=== PATIENT | female | born 1950 | race Caucasian/White ===

== ENCOUNTER → 2016-07-18 | Outpatient (CLI) | payer OTHER ==
[~2016-07-18] MED LIST: ASCO500T3 PO; CLTP PO; ENAL1TAB31 PO; HYDR25TA5 PO; MULTTAB58 PO; NEOM1SOL20 OT; NSNN50 NAE; POTA1CAP2 PO; TRIA0.1C20 TOP
--- NOTE | 2016-07-18 16:42 | MAMMOGRAPHY REPORT ---
BILATERAL DIGITAL SCREENING MAMMOGRAM WITH CAD: 07/18/2016 TECHNIQUE: Current study was also evaluated with a Computer Aided Detection (CAD) system. Bilatera l CC and MLO views were obtained. COMPARISON: Comparison is made to exams dated: 02/27/2015 mammogram, 11/08/2012 mammogram - [facility], and 03/07/2009. BREAST COMPOSITION: There are scattered areas of fibroglandular density in both breasts. FINDINGS: No suspicious masses, calcifications, or areas of architectural distortion are noted in e ither breast. There has been no significant interval change compared to prior exams. IMPRESSION: ACR BI-RADS CATEGORY 1: NEGATIVE There is no mammographic evidence of malignancy. A 1 year screening mammogram is recommended. The p atient will receive written notification of the results. Approximately 10% of breast cancers are not detected with mammography. A negative mammographic repor t should not delay biopsy if a clinically suggestive mass is present. Etelvina Hopper M.D. ah/:07/18/2016 13:58:27 Screw Driver Operator: Luz Marina AMAYA(Dawson)(Dyllan), [facility] letter sent: Normal 1/2 BI-RADS Code: ACR BI-RADS Category 1: Negative
== END | disposition home or self-care (01) ==
LOC: C.MAMM 13:36
PROVIDERS: ATTEND Family Medicine
DX: Z12.31 Encounter for screening mammogram for malignant neoplasm of breast (principal)

== ENCOUNTER 2017-09-04 09:27 | Inpatient (IN) | payer OTHER ==
[~2017-09-04] VITALS: Ht 177.8 cm; Wt 80.2 kg
[2017-09-04] MEDS ORDERED: SODIUM CHLORIDE 0.9% 1000ML 1,000 ML IV SCH (09:33)
--- NOTE | 2017-09-04 09:53 | DIAGNOSTIC IMAGING REPORT ---
CT OF THE HEAD WITHOUT CONTRAST CLINICAL HISTORY: Stroke COMPARISON STUDY: Head CT November 06, 2014 and MRI of the brain March 09, 2015. CT DOSE: 786.26 mGy.cm TECHNIQUE: Helical axial images of the head were obtained without IV contrast. Automated exposure control was utilized for the study. A dose lowering technique was utilized adhering to the principles of ALARA. FINDINGS: No acute intracranial hemorrhage, midline shift or mass effect is present. Ventricular system is normal. Basilar cisterns are patent. 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 There is an old infarct within the left centrum semiovale. White matter hypodensities are unchanged. There are no findings to suggest acute dural sinus thrombosis or acute territorial infarct. There are no significant calvarial abnormalities. Visualized portions of the sinuses and mastoid air cells are clear. IMPRESSION: No acute intracranial findings. Electronically signed by: Neftali Gilmore M.D. 09/04/2017 9:52 AM Dictated Date/Time: 09/04/2017 9:43 AM
[2017-09-04 09:54] LABS: ISTAT CREATININE 0.9 mg/dl (0.6-1.3); ISTAT IONIZED CALCIUM 1.2 mmol/l (1.12-1.32); ISTAT POTASSIUM 3.5 mEq/L (3.3-5.0)
[2017-09-04 09:58] LABS: BASO % 0.3 %; BASO ABS # 0.02 K/uL (0-0.2); EOS % 2.8 %; EOS ABS # 0.16 K/uL (0-0.5); HEMOGLOBIN 14.5 g/dL (12.0-16.0); IG# 0.01 K/uL (0.00-0.02); LYMPH ABS # 2.37 K/uL (1.2-3.4); MEAN CELL VOLUME 88.1 fL (80-100); MEAN CORPUSCULAR HEMOGLOBIN 30.4 pg (25-34); MEAN CORPUSCULAR HGB CONC 34.5 g/dl (32-36); MONO % 7.3 %; MONO ABS # 0.42 K/uL (0.11-0.59); NEUT % 48.4 %; PLATELET COUNT 231 K/uL (130-400); RED CELL DISTRIBUTION WIDTH CV 12.7 % (11.5-14.5); RED CELL DISTRIBUTION WIDTH SD 40.8 fL (36.4-46.3); WHITE BLOOD COUNT 5.78 K/uL (4.8-10.8)
[2017-09-04] MEDS ORDERED: OPTIRAY 300 IV PRN (10:00)
--- NOTE | 2017-09-04 10:05 | DIAGNOSTIC IMAGING REPORT ---
CTA ANGIOGRAPHY OF THE HEAD CLINICAL HISTORY: Stroke symptoms. COMPARISON STUDY: MRA of the head March 09, 2015. TECHNIQUE: Helical axial images of the head were obtained following uneventful intravenous administration of 121 cc of Optiray 320. A dose lowering technique was utilized adhering to the principles of ALARA. FINDINGS: The CTA of the neck will be reported separately. The bilateral M1, M2, A1 and A2 segments are patent. There is moderate plaque within bilateral cavernous carotids without significant stenosis. No abrupt vessel cut off is identified. Note is made of a tiny 2 mm aneurysm arising from the undersurface of the supraclinoid right ICA. No additional intracranial aneurysms are identified. The right vertebral artery is dominant. The left vertebral artery is diminutive. This is unchanged. A large left posterior communicating artery is noted. No acute intracranial hemorrhage, midline shift or mass effect is present. Ventricular system is normal. Basilar cisterns are patent. No extra-axial collections are present. IMPRESSION: 1. No abrupt vessel cut off identified. 2. 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 No additional intracranial aneurysms. 3. Moderate plaque within the bilateral cavernous carotids without hemodynamically significant stenosis. Electronically signed by: Neftali Gilmore M.D. 09/04/2017 10:04 AM Dictated Date/Time: 09/04/2017 9:55 AM
--- NOTE | 2017-09-04 10:08 | DIAGNOSTIC IMAGING REPORT ---
CT ANGIOGRAM OF THE NECK CLINICAL HISTORY: Strokelike symptoms. COMPARISON STUDY: No priors. TECHNIQUE: Following the IV administration of 121 of Optiray 320, CT angiogram of the neck was performed from the aortic arch to the skull base. Images are reviewed in the axial, sagittal, and coronal planes. 3-D MIPS images are created and assessed. IV contrast was administered without complication. All measurements were calculated based on NASCET criteria. A dose lowering technique was utilized adhering to the principles of ALARA. CT DOSE: 527.68 mGy.cm FINDINGS: Thoracic aorta: There is moderate carotid calcification of the thoracic aorta. Visualized portions of the thoracic aorta are normal in caliber. The aortic arch demonstrates standard 3-vessel anatomy. Right carotid arterial system: The right common carotid artery is widely patent, as are the right internal and external carotid arteries. Minimal ulcerated plaque is noted in the carotid bulb. Left carotid arterial system: The left common carotid artery is widely patent, as are the left internal and external carotid arteries. Vertebral arteries: The vertebral arteries are widely patent bilaterally, noting right-sided dominance. Intracranial vasculature: Intracranial vessels are patent at the skull base. The left vertebral artery is diminutive. Subclavian arteries: Widely patent bilaterally. Jugular veins: Widely patent bilaterally. Brain parenchyma: The visualized brain parenchyma the skull base is within normal limits. Lung apices: Partially visualized upper lobe lung parenchyma appears clear. Soft tissues: The visualized pharyngeal soft tissues are normal in appearance noting angiographic phase technique. The oropharyngeal airway appears widely patent. The salivary glands are normal in appearance. There is a 5 mm low-attenuation nodule in the right thyroid lobe. No cervical lymphadenopathy is seen. Skeletal structures: The visualized calvarium at the skull base appears intact. The imaged cervical spine is within normal limits. IMPRESSION: Unremarkable CT angiogram of the neck. Electronically signed by: Ben Marshall M.D. 09/04/2017 10:06 AM Dictated Date/Time: 09/04/2017 9:56 AM
--- NOTE | 2017-09-04 10:09 | DIAGNOSTIC IMAGING REPORT ---
CHEST ONE VIEW PORTABLE CLINICAL HISTORY: Stroke COMPARISON STUDY: Chest radiograph March 09, 2015. FINDINGS: Dextroscoliosis of the upper thoracic spine is incidentally noted. No pneumothorax or pleural effusion is noted. There is no evidence for pulmonary edema. Cardiomediastinal silhouette is unremarkable. Appearance of the chest is unchanged. IMPRESSION: No acute cardiopulmonary findings. Electronically signed by: Neftali Gilmore M.D. 09/04/2017 10:07 AM Dictated Date/Time: 09/04/2017 10:07 AM
[2017-09-04 10:11] LABS: PTT PATIENT 27.8 SECONDS (21.0-31.0)
[2017-09-04] MEDS ORDERED: ASPIRIN 324 MG CHEW PO STA (10:15)
[2017-09-04 10:21] LABS: BLOOD UREA NITROGEN 12 mg/dl (7-18); CALCIUM 8.9 mg/dl (8.5-10.1); CARBON DIOXIDE 30 mmol/L (21-32); GLUCOSE 95 mg/dl (70-99); POTASSIUM 4.2 mmol/L (3.5-5.1); SODIUM 135 mmol/L (136-145)
[2017-09-04 10:26] LABS: CKMB 1.8 ng/ml (0.5-3.6)
[2017-09-04 11:00] VITALS: O2SAT 96; Ht 177.8 cm; Wt 80.2 kg
[2017-09-04] MEDS ORDERED: ACETAMINOPHEN 325 MG TAB PO PRN (11:45)
[2017-09-04] MEDS ORDERED: ONDANSETRON INJ 2 MG/ML 2 ML VIAL IV PRN (11:45)
[2017-09-04] MEDS ORDERED: PLANTAB3 PO (11:53)
[2017-09-04] MEDS ORDERED: GARL1CAP6 PO (11:53)
[2017-09-04] MEDS ORDERED: OMEG1400 PO (11:53)
[2017-09-04] MEDS ORDERED: MECL1TAB42 PO (11:53)
[2017-09-04] MEDS ORDERED: MECL1TAB40 PO (11:53)
[2017-09-04 11:56] VITALS: O2SAT 94
[2017-09-04] MEDS ORDERED: PHARMACIST DISCHARGE MED REC CONSULT PRN (12:00)
[2017-09-04 12:30] VITALS: BP 168/98; PULSE 80; TEMP 36.9; O2SAT 97
[2017-09-04 12:33] LABS: HEMOGLOBIN A1C 5.8 % (4.5-5.6)
--- NOTE | 2017-09-04 14:34 | History and Physical ---
History & Physical Date & Time of Service: Sep 04, 2017 ~ 11:15 Chief Complaint: Right Sided Weakness Primary Care Physician: Faheem Nicole D.O. History of Present Illness 67-year-old female who presents to the ER with chief complaint of right-sided weakness. Patient reports she woke up feeling in her usual state of health. She was walking through a store when she reports her right leg started to not feel right. She felt as though maybe the floor was slippery. She then went home and noticed that her right arm started to become weak. She had trouble holding her coffee cup with her right hand. She also reports some difficulty walking noting that her right leg was weak and that she was falling to the right side. Patient denies slurred speech, facial droop, or dysphasia. No headache or blurred vision. She denies chest pain and shortness of breath. No lightheadedness, dizziness, diaphoresis, or syncopal events. She denies abdominal pain, nausea, vomiting, diarrhea. No other recent illnesses, fevers, or chills. She denies any urinary symptoms. In the ED symptoms have slowly started to resolve. Patient reports she has almost back to her baseline. Patient underwent head CT as well as CTA head and neck without acute findings. Alert was called however TPA was not given due to the patient's history of intracranial hemorrhage in the past. Vital signs remained stable. Patient was given full dose aspirin. Past Medical/Surgical History Medical Problems: (1) Dyslipidemia Status: Chronic (2) Hypertension Status: Chronic (3) ICH (intracerebral hemorrhage) Status: Resolved (4) Mnire's disease Status: Chronic Surgical Problems: (1) H/O dilation and curettage Status: Chronic (2) H/O tubal ligation Status: Chronic (3) Hx of appendectomy Status: Chronic (4) Hx of tonsillectomy Status: Chronic Family History CVA BROTHER FH: colon cancer FATHER FH: pancreatic cancer MOTHER Social History Smoking Status: Former Smoker Alcohol Use: occasionally Immunizations History of Influenza Vaccine: Yes Influenza Vaccine Date: Mar 08, 2017 History of Tetanus Vaccine?: Yes Tetanus Immunization Date: Jan 04, 2008 History of Pneumococcal: Yes (07/04/16) Pneumococcal Date: Jul 04, 2016 Allergies Coded Allergies: Amoxicillin (Verified Adverse Reaction, Intermediate, nausea, 03/09/15) Clavulanic Acid (Verified Adverse Reaction, Intermediate, nausea, 03/09/15 ) Prednisone (Verified Adverse Reaction, Intermediate, nausea, 03/09/15) Sulfa Antibiotics (Verified Adverse Reaction, Intermediate, nausea, ) Doxycycline (Unverified Adverse Reaction, Unknown, nausea, 03/09/15) Home Medications Scheduled Calcium/Vitamin D (Caltrate 600 Plus *), 1 TAB PO DAILY Enalapril Maleate (Vasotec), 20 MG PO BID Garlic (Garlic), 1 CAP PO BID Hydrochlorothiazide (Hydrochlorothiazide), 25 MG PO DAILY Meclizine HCl (Meclizine HCl), 1 TAB PO QAM Meclizine Hcl (Meclizine Hcl), 1 TAB PO QPM Mometasone Furoate (Nasal) (Nasonex), 2 [place] DAILY Multiple Vitamin (Multivitamin), 1 TAB PO DAILY Boulder-3 Fatty Acids (Boulder-3), 500 MG PO DAILY Plant Sterols And Stanols (Cholest Off), 2 TAB PO DAILY Potassium Chloride (Potassium Chloride Er), 10 MEQ PO BID Review of Systems ROS per HPI, all other systems reviewed and negative Physical Exam Vital Signs Date Time Temp Pulse Resp B/P (MAP) Pulse Ox O2 Delivery O2 Flow Rate FiO2 09/04/17 12:30 36.9 80 18 168/98 (121) 97 Room Air 09/04/17 11:56 76 17 141/89 94 Room Air 09/04/17 11:00 96 Room Air 09/04/17 10:56 79 20 161/92 96 Room Air 09/04/17 10:10 87 22 184/96 96 Room Air 09/04/17 10:06 93 09/04/17 09:59 88 18 177/98 95 Room Air 09/04/17 09:53 97 Room Air 09/04/17 09:29 36.6 95 20 156/93 96 Room Air General Appearance: WD/WN, no apparent distress Head: normocephalic, atraumatic Eyes: normal inspection, PERRL, EOMI, sclerae normal ENT: hearing grossly normal, + pertinent finding (Mucous membranes moist) Neck: supple, no JVD, no carotid bruits Respiratory/Chest: lungs clear, normal breath sounds, no respiratory distress Cardiovascular: regular rate, rhythm, no edema, normal peripheral pulses Abdomen/GI: normal bowel sounds, non tender, soft, no organomegaly Extremities/Musculoskelatal: normal inspection, no calf tenderness, normal capillary refill Neurologic/Psych: alert, normal mood/affect, oriented x 3, + pertinent finding (Right lower extremity strength 4/5; otherwise no focal deficits noted) Skin: normal color, warm/dry Diagnostics Laboratory Results Results Past 24 Hours Test 09/04/17 09:36 09/04/17 09:38 09/04/17 09:52 09/04/17 09:56 Range/Units Bedside Hemoglobin 15.0 12.0-16.0 g/dl Bedside Hematocrit 44 37-47 % Bedside Sodium 139 135-144 mEq/L Bedside Potassium 3.5 3.3-5.0 mEq/L Bedside Chloride 97 101-112 mEq/L Bedside Total CO2 31 24-31 mEq/l Anion Gap 15.0 4.0 3-11 mmol/L Bedside Blood Urea Nitrogen 12 7-18 mg/dl Bedside Creatinine 0.9 0.6-1.3 mg/dl Bedside Glucose (other) 111 70-99 mg/dl Bedside Ionized Calcium (Bo) 1.20 1.12-1.32 mmol/l White Blood Count 5.78 4.8-10.8 K/uL Red Blood Count 4.77 4.2-5.4 M/uL Hemoglobin 14.5 12.0-16.0 g/dL Hematocrit 42.0 37-47 % Mean Corpuscular Volume 88.1 80-100 fL Mean Corpuscular Hemoglobin 30.4 25-34 pg Mean Corpuscular Hemoglobin Concent 34.5 32-36 g/dl Platelet Count 231 130-400 K/uL Mean Platelet Volume 11.0 7.4-10.4 fL Neutrophils (%) (Auto) 48.4 % Lymphocytes (%) (Auto) 41.0 % Monocytes (%) (Auto) 7.3 % Eosinophils (%) (Auto) 2.8 % Basophils (%) (Auto) 0.3 % Neutrophils # (Auto) 2.80 1.4-6.5 K/uL Lymphocytes # (Auto) 2.37 1.2-3.4 K/uL Monocytes # (Auto) 0.42 0.11-0.59 K/uL Eosinophils # (Auto) 0.16 0-0.5 K/uL Basophils # (Auto) 0.02 0-0.2 K/uL RDW Standard Deviation 40.8 36.4-46.3 fL RDW Coefficient of Variation 12.7 11.5-14.5 % Immature Granulocyte % (Auto) 0.2 % Immature Granulocyte # (Auto) 0.01 0.00-0.02 K/uL Prothrombin Time 10.7 9.0-12.0 SECONDS Prothromb Time International Ratio 1.0 0.9-1.1 Activated Partial Thromboplast Time 27.8 21.0-31.0 SECONDS Partial Thromboplastin Ratio 1.1 Estimated Average Glucose 120 mg/dl Hemoglobin A1c 5.8 4.5-5.6 % Bedside Prothrombin Time INR 1.1 0.9-1.1 Sodium Level 135 136-145 mmol/L Potassium Level 4.2 3.5-5.1 mmol/L Chloride Level 101 98-107 mmol/L Carbon Dioxide Level 30 21-32 mmol/L Blood Urea Nitrogen 12 7-18 mg/dl Creatinine 0.80 0.60-1.20 mg/dl Est Creatinine Clear Calc Drug Dose 80.4 ml/min Estimated GFR () 88.4 Estimated GFR (Non- 76.3 BUN/Creatinine Ratio 14.5 10-20 Random Glucose 95 70-99 mg/dl Calcium Level 8.9 8.5-10.1 mg/dl Magnesium Level 2.0 1.8-2.4 mg/dl Total Creatine Kinase 104 26-192 U/L Creatine Kinase MB 1.8 0.5-3.6 ng/ml Creatine Kinase MB Ratio 1.7 0-3.0 Troponin I < 0.015 0-0.045 ng/ml Diagnostic Radiology HEAD CT IMPRESSION: No acute intracranial findings. CXR IMPRESSION: No acute cardiopulmonary findings. CTA NECK IMPRESSION: Unremarkable CT angiogram of the neck. CTA HEAD IMPRESSION: 1. No abrupt vessel cut off identified. 2. 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 No additional intracranial aneurysms. 3. Moderate plaque within the bilateral cavernous carotids without hemodynamically significant stenosis. Impression Assessment and Plan RIGHT-SIDED WEAKNESS R/O CVA -Admitted to telemetry -Patient presenting with right-sided weakness started around 8:00 this morning, symptoms have gradually resolved since arrival in the ER and patient is now near baseline -Head CT, CTA head and neck negative for acute findings in the ED -Stroke alert called however patient felt not to be a candidate for TPA secondary to her history of subarachnoid hemorrhage in 2006 (which was felt to be hypertensive in nature) -S/P full dose aspirin in the ED, will continue with aspirin 81 mg daily -Will start Lipitor 40 mg daily, patient was recently diagnosed with dyslipidemia as an outpatient however was trying diet modifications before starting prescription therapy -Neurochecks -Brain MRI, echo -Permissive hypertension -Neurology consult, case discussed with Tosha Pack PA-C HYPERTENSION -Will hold enalapril and hydrochlorothiazide for now while allowing for permissive hypertension due to possible CVA DYSLIPIDEMIA -Start on statin therapy DVT PROPHYLAXIS -SCDs due to history of intracranial hemorrhage DISPOSITION -In my clinical judgment this beneficiary meets acute admission criteria, established by [facility], that includes being hospitalized through two midnights. ADDENDUM: I have seen and examined the patient above and agree w the assessment and plan as stated. MRI reveals no acute intracranial abnormality and at this point she appears to have a total resolution of her symptoms, however, gait was not assessed. CTA revealed tiny 2mm aneurysmal focus that was unchanged from a prior study at [place]. TTE was normal without interatrial shunting. Would cont ASA/statin therapy for now as clinical picture is consistent with stroke. Appreciate Neurology recs for definitive plan. Of note, patient does have chronic Meniere's disease and symptoms are well-managed with meclizine. She denies any vertigo with symptoms today. Matias, Advanced Directives Existing Living Will: Yes Existing Power of Surface Grinder Tender: Yes Resuscitation Status VTE Prophylaxis Will order VTE Prophylaxis: Yes
--- NOTE | 2017-09-04 14:35 | ECHOCARDIOGRAM REPORT ---
*NOTICE TO RECEIVING [employer] This information is strictly Confidential and protected under [place] law. [place] law prohibits you from making any further disclosure of this information unless further disclosure is expressly permitted by the written consent of the person to whom it pertains or is authorized by law. A general authorization for the release of medical or other information is not sufficient for this purpose. Hospital accepts no responsibility if the information is made available to any other person, INCLUDING THE PATIENT. Interpretation Summary * Name: SARAH VARELA Study Date: 09/04/2017 01:11 PM BP: 168/98 mmHg * Patient Location: [facility] HR: 80 * : 1950 (M/d/yyyy) Gender: Female Height: 70 in * Age: 67 yrs Ethnicity: CA Weight: 184 lb * Ordering Physician: Isabelle Pond * Performed By: Roslyn Wyman RDCS * * Reason For Study: Cerebral Vascular Attack * BSA: 2.0 m2 * -- Conclusions -- * Injection of contrast documented no interatrial shunt. * The interatrial septum is intact with no evidence for an atrial septal defect. * The left ventricle is normal in size. * Left ventricular systolic function is normal. * Ejection Fraction = 55-60%. * The right ventricular systolic function is normal. * The left atrial size is normal. * Right atrial size is normal. * No significant valvular pathology. Procedure Details * A complete two-dimensional transthoracic echocardiogram was performed (2D, M-mode, Doppler and color flow Doppler). * A saline contrast injection was performed to assess for cardiac shunting. * The injection was performed through an intravenous line in the left arm. * The attending nurse who injected the saline contrast was Linda Callahan RN. * A total of 20 cc of agitated saline was given. Left Ventricle * The left ventricle is normal in size. * There is normal left ventricular wall thickness. * Ejection Fraction = 55-60%. * Left ventricular systolic function is normal. Right Ventricle * The right ventricle is normal size. * The right ventricular systolic function is normal. Atria * The left atrial size is normal. * Right atrial size is normal. * Injection of contrast documented no interatrial shunt. * The interatrial septum is intact with no evidence for an atrial septal defect. Mitral Valve * The mitral valve anatomy is normal. * Significant mitral regurgitation is absent. Tricuspid Valve * The tricuspid valve anatomy is normal. * Significant tricuspid regurgitation is absent. Aortic Valve * The aortic valve is tricuspid. The leaflet thickness if normal. There is no aortic stenosis, and no significant insufficiency. Pulmonic Valve * The pulmonic valve is not well visualized. Great Vessels * The aortic root and proximal ascending aorta are normal sized. Pericardium/Pleural * There is no pericardial effusion. MMode 2D Measurements and Calculations IVSd 0.85 cm IVSs 0.93 cm LVIDd 4.0 cm LVIDs 2.8 cm LVPWd 0.71 cm LVPWs 1.4 cm IVS/LVPW 1.2 FS 29.9 % EDV(Teich) 69.6 ml ESV(Teich) 29.5 ml EF(Teich) 57.6 % EDV(cubed) 63.6 ml ESV(cubed) 21.9 ml EF(cubed) 65.5 % % IVS thick 9.4 % % LVPW thick 97.4 % LV mass(C)d 90.1 grams LV mass(C)dI 44.7 grams/m\S\2 LV mass(C)s 94.9 grams LV mass(C)sI 47.1 grams/m\S\2 SV(Teich) 40.1 ml SI(Teich) 19.9 ml/m\S\2 SV(cubed) 41.6 ml SI(cubed) 20.7 ml/m\S\2 Ao root diam 2.9 cm Ao root area 6.8 cm\S\2 ACS 2.0 cm LA dimension 3.4 cm LA/Ao 1.1 LVAd ap4 25.2 cm\S\2 LVLd ap4 7.9 cm EDV(MOD-sp4) 66.5 ml EDV(sp4-el) 68.4 ml LVAs ap4 14.7 cm\S\2 LVLs ap4 6.4 cm ESV(MOD-sp4) 29.2 ml ESV(sp4-el) 28.8 ml EF(MOD-sp4) 56.1 % EF(sp4-el) 57.9 % LVAd ap2 22.2 cm\S\2 LVLd ap2 7.6 cm EDV(MOD-sp2) 57.5 ml EDV(sp2-el) 55.2 ml LVAs ap2 13.0 cm\S\2 LVLs ap2 6.5 cm ESV(MOD-sp2) 23.0 ml ESV(sp2-el) 22.1 ml EF(MOD-sp2) 60.0 % EF(sp2-el) 59.9 % LVLd %diff -3.98 % EDV(MOD-bp) 62.2 ml LVLs %diff 1.2 % ESV(MOD-bp) 26.1 ml EF(MOD-bp) 58.0 % SV(MOD-sp4) 37.3 ml SI(MOD-sp4) 18.5 ml/m\S\2 SV(MOD-sp2) 34.5 ml SI(MOD-sp2) 17.1 ml/m\S\2 SV(MOD-bp) 36.1 ml SI(MOD-bp) 17.9 ml/m\S\2 SV(sp4-el) 39.6 ml SI(sp4-el) 19.7 ml/m\S\2 SV(sp2-el) 33.1 ml SI(sp2-el) 16.4 ml/m\S\2 Doppler Measurements and Calculations MV E max brian 62.3 cm/sec MV A max brian 108.0 cm/sec MV E/A 0.58 MV dec time 0.32 sec Ao V2 max 122.8 cm/sec Ao max PG 6.0 mmHg Ao max PG (full) 3.5 mmHg LV V1 max PG 2.5 mmHg LV V1 max 79.6 cm/sec PA V2 max 64.2 cm/sec PA max PG 1.6 mmHg TR max brian 176.0 cm/sec
[2017-09-04] MEDS ORDERED: ALPRAZOLAM 0.5 MG TAB PO PRN (15:00)
--- NOTE | 2017-09-04 15:04 | Neurology Consultation ---
Neurology Consultation Date of Consultation: Sep 04, 2017. Attending Physician: Danielle Salcedo DO Primary Care Physician: Faheem Nicole D.OJenifer Reason for Consultation: right sided weakness, TIA vs CVA History of Present Illness Source: patient Zee is a 67 year old female PMH Meniere's, disease right ear with hearing loss, HTN, ICH who presents to the ER with chief complaint of right-sided weakness. She woke up feeling at her baseline. she was walking through [place] with her and her right leg started to not feel right. She felt as though maybe the floor was slippery. She went home to eat breakfast and noticed she couldn't hold her coffee cup with her right hand. When she would walk she was veering to the right. While in the ED the symptoms slowly started to resolve and she feel back to her baseline accept she feels tired. ad CT as well as CTA head and neck without acute findings. Stroke alert was called but she was given a full dose aspirin only due to a PMH of hemorrhagic bleed. denies CP, SOB, abdominal pain, weakness, numbness tingling, N, V, vision changes, slurred speech, swallowing issues, falls Social History Alcohol Use: occasionally Housing Status: lives with family Allergies Coded Allergies: Amoxicillin (Verified Adverse Reaction, Intermediate, nausea, 03/09/15) Clavulanic Acid (Verified Adverse Reaction, Intermediate, nausea, 03/09/15 ) Prednisone (Verified Adverse Reaction, Intermediate, nausea, 03/09/15) Sulfa Antibiotics (Verified Adverse Reaction, Intermediate, nausea, ) Doxycycline (Unverified Adverse Reaction, Unknown, nausea, 03/09/15) Current Inpatient Medications Current Inpatient Medications Medications (Trade) Dose Ordered Sig/Darlene Route Start Time Stop Time Status Last Admin Dose Admin Ioversol (Optiray 300) 121 ml UD PRN IV 09/04/17 10:00 09/08/17 09:59 Acetaminophen (Tylenol Tab) 650 mg Q4H PRN PO 09/04/17 11:45 10/04/17 11:44 Ondansetron HCl (Zofran Inj) 4 mg Q6H PRN IV 09/04/17 11:45 10/04/17 11:44 Aspirin (Ecotrin Tab) 81 mg QAM PO 09/05/17 09:00 5/14/18 08:59 Atorvastatin Calcium (Lipitor Tab) 40 mg QAM PO 09/04/17 12:00 10/04/17 11:59 Miscellaneous Information (Pharmacist Discharge Med Rec Consult) 1 ea UD PRN N/A 09/04/17 12:00 10/04/17 11:59 Calcium/Vitamin D (Caltrate Plus Tab) 1 tab DAILY PO 09/05/17 09:00 10/05/17 08:59 Meclizine HCl (Antivert Tab) 25 mg DAILYBD PO 09/04/17 16:15 10/04/17 16:14 Multivitamins (Multivitamin Tab) 1 tab DAILY PO 09/05/17 09:00 10/05/17 08:59 Meclizine HCl (Antivert Tab) 12.5 mg DAILY PO 09/05/17 09:00 10/05/17 08:59 Fish Oil ([place]-3 (Purified Fish Oil) Cap) 1 gm DAILY PO 09/05/17 09:00 10/05/17 08:59 Potassium Chloride (Klor-Con M10) 10 meq BID PO 09/04/17 21:00 10/04/17 20:59 Physical Exam Vital Signs (Past 24 Hrs): Date Time Temp Pulse Resp B/P (MAP) Pulse Ox O2 Delivery O2 Flow Rate FiO2 09/04/17 12:30 36.9 80 18 168/98 (121) 97 Room Air 09/04/17 11:56 76 17 141/89 94 Room Air 09/04/17 11:00 96 Room Air 09/04/17 10:56 79 20 161/92 96 Room Air 09/04/17 10:10 87 22 184/96 96 Room Air 09/04/17 10:06 93 09/04/17 09:59 88 18 177/98 95 Room Air 09/04/17 09:53 97 Room Air 09/04/17 09:29 36.6 95 20 156/93 96 Room Air Physical Exam: Constitutional: appearance nourished, healthy and normal Ears, Nose, Mouth and Throat: mucous membranes moist, no injection and skin normal, eyes normal Cardiovascular: normal S-1 and S-2 and regular rate and rhythm Respiratory: clear to auscultation (CTA) and no rales, rhonchi or wheeze Musculoskeletal: no peripheral edema and good distal pulses Skin: no stigmata of neurocutaneous disease noted and normal and intact Eyes: extraocular muscles intact (EOMI) and pupils equal, round and reactive to light (PERRL) NEUROLOGIC EXAMINATION: Mental status: Alert and interactive Oriented to full date and location Oriented to person Speech fluent with no evidence of aphasia Cranial Nerves smile eye brow raise symmetric Reflexes: Deep tendon reflexes were symmetrical and graded 2/5. Plantar responses were flexor. Sensory: cool touch, vibration Coordination: Romberg absent, finger to nose with no bi pass Gait/Stance: Posture normal. Gait normal: with steady with steps, base, turning, heel and toe walking (mild difficulty) and tandem gait. Motor: Negative for pronator drift of out stretched arms with eyes closed. Strength: biceps, triceps, hand delivery lead intrinsics, bilaterally 5/5, hip flex plantar flex ext 5/5 bilaterally Laboratory Results Past 24 Hours: 09/04/17 09:38 Red Blood Count 4.77, Mean Corpuscular Volume 88.1, Mean Corpuscular Hemoglobin 30.4, Mean Corpuscular Hemoglobin Concent 34.5, Mean Platelet Volume 11.0, Neutrophils (%) (Auto) 48.4, Lymphocytes (%) (Auto) 41.0, Monocytes (%) (Auto) 7.3, Eosinophils (%) (Auto) 2.8, Basophils (%) (Auto) 0.3, Neutrophils # (Auto) 2.80, Lymphocytes # (Auto) 2.37, Monocytes # (Auto) 0.42, Eosinophils # (Auto) 0.16, Basophils # (Auto) 0.02 09/04/17 09:56 Test 09/04/17 09:36 09/04/17 09:38 09/04/17 09:52 09/04/17 09:56 Bedside Hemoglobin 15.0 g/dl (12.0-16.0) Bedside Hematocrit 44 % (37-47) Bedside Sodium 139 mEq/L (135-144) Bedside Potassium 3.5 mEq/L (3.3-5.0) Bedside Chloride 97 mEq/L (101-112) Bedside Total CO2 31 mEq/l (24-31) Bedside Blood Urea Nitrogen 12 mg/dl (7-18) Bedside Creatinine 0.9 mg/dl (0.6-1.3) Bedside Glucose (other) 111 mg/dl (70-99) Bedside Ionized Calcium (Bo) 1.20 mmol/l (1.12-1.32) White Blood Count 5.78 K/uL (4.8-10.8) Red Blood Count 4.77 M/uL (4.2-5.4) Hemoglobin 14.5 g/dL (12.0-16.0) Hematocrit 42.0 % (37-47) Mean Corpuscular Volume 88.1 fL (80-100) Mean Corpuscular Hemoglobin 30.4 pg (25-34) Mean Corpuscular Hemoglobin Concent 34.5 g/dl (32-36) Platelet Count 231 K/uL (130-400) Mean Platelet Volume 11.0 fL (7.4-10.4) Neutrophils (%) (Auto) 48.4 % Lymphocytes (%) (Auto) 41.0 % Monocytes (%) (Auto) 7.3 % Eosinophils (%) (Auto) 2.8 % Basophils (%) (Auto) 0.3 % Neutrophils # (Auto) 2.80 K/uL (1.4-6.5) Lymphocytes # (Auto) 2.37 K/uL (1.2-3.4) Monocytes # (Auto) 0.42 K/uL (0.11-0.59) Eosinophils # (Auto) 0.16 K/uL (0-0.5) Basophils # (Auto) 0.02 K/uL (0-0.2) RDW Standard Deviation 40.8 fL (36.4-46.3) RDW Coefficient of Variation 12.7 % (11.5-14.5) Immature Granulocyte % (Auto) 0.2 % Immature Granulocyte # (Auto) 0.01 K/uL (0.00-0.02) Prothrombin Time 10.7 SECONDS (9.0-12.0) Prothromb Time International Ratio 1.0 (0.9-1.1) Activated Partial Thromboplast Time 27.8 SECONDS (21.0-31.0) Partial Thromboplastin Ratio 1.1 Estimated Average Glucose 120 mg/dl Hemoglobin A1c 5.8 % (4.5-5.6) Bedside Prothrombin Time INR 1.1 (0.9-1.1) Anion Gap 4.0 mmol/L (3-11) Est Creatinine Clear Calc Drug Dose 80.4 ml/min Estimated GFR () 88.4 Estimated GFR (Non- 76.3 BUN/Creatinine Ratio 14.5 (10-20) Calcium Level 8.9 mg/dl (8.5-10.1) Magnesium Level 2.0 mg/dl (1.8-2.4) Total Creatine Kinase 104 U/L (26-192) Creatine Kinase MB 1.8 ng/ml (0.5-3.6) Creatine Kinase MB Ratio 1.7 (0-3.0) Troponin I < 0.015 ng/ml (0-0.045) Imaging TTE- * Injection of contrast documented no interatrial shunt. * The interatrial septum is intact with no evidence for an atrial septal defect. * The left ventricle is normal in size. * Left ventricular systolic function is normal. * Ejection Fraction = 55-60%. * The right ventricular systolic function is normal. * The left atrial size is normal. * Right atrial size is normal. * No significant valvular pathology. CTA head-. No abrupt vessel cut off identified. 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 No additional intracranial aneurysms. Moderate plaque within the bilateral cavernous carotids without hemodynamically significant stenosis. CTA neck- Unremarkable CT angiogram of the neck. CT head- No acute intracranial findings Impression 67 year old female with right sided weakness- resolved Plan 1. PMH ICH- not on aspirin at home -plavix not started 2. MRI brain pending 3. CTA head and neck- no acute findings 4. TTE - no ASD 5. optimize HTN, DL LDL<70 6. PT/OT appears to be no ongoing need 7. further recommendations to follow I have seen and discussed above patient with Dr Tosha Dalal, neurology Pt seen and examined, Hx of what I presume to be a htn L thal hem. Pt denies residua. Had transient sx rue and rle.Suspect TIA, REc MRI, cardiovasc chu. morales/ MD Larisa
[2017-09-04 15:41] VITALS: BP 129/80; PULSE 89; TEMP 37.1; O2SAT 96
--- NOTE | 2017-09-04 16:12 | EMERGENCY ROOM VISIT NOTE ---
History Report prepared by Charles: Regina Gallegos Under the Supervision of: Dr. Augustine Farias D.O. First contact with patient: 09:30 Chief Complaint: STROKE SYMPTOMS Stated Complaint: POSSIBLE STROKE SYMPTOMS History of Present Illness The patient is a 67 year old female who presents to the Emergency Room with complaints of sudden weakness in her right leg and right arm beginning at 8 am this morning, an hour and a half ago. The patient states "I believe I might be having a stroke". She notes that at 8 AM she has weakness in her right upper and right lower extremity. Nothing makes this better or worse. She has trouble with fine motor. She is able to ambulate but notes that she falls to the side. She has never had this before. This did come on suddenly and has been persistent since 8am. per , the patient's speech sounds normal. The patient states she was walking through [employer] when she started to feel "off balance". Pt denies headache, change in vision, fevers, chest pain, shortness of breath, nausea, vomiting, diarrhea, pain with urination, and melena. The patient denies any history of A-fib. The patient notes a history of a brain bleed which she was life flighted to [facility] in 2005. She states she is unsure of what the cause of her brain bleed was. The patient had an MRI yesterday because of her history of Meniere's disease. Source of History: patient Onset: 8 am Position: other (right sided) Quality: other (weakness) Timing: other (sudden) Associated Symptoms: + weakness, No fevers, No headache, No chest pain, No SOB, No nausea, No vomiting, No diarrhea Review of Systems See HPI for pertinent positives & negatives. A total of 10 systems reviewed and were otherwise negative. Past Medical & Surgical Medical Problems: (1) Dyslipidemia (2) Hypertension (3) ICH (intracerebral hemorrhage) (4) Mnire's disease Surgical Problems: (1) H/O dilation and curettage (2) H/O tubal ligation (3) Hx of appendectomy (4) Hx of tonsillectomy Family History Cancer Gallbladder disease Hypertension Social History Smoking Status: Former Smoker Alcohol Use: none Marital Status: Housing Status: lives with family Occupation Status: employed Current/Historical Medications Scheduled Calcium/Vitamin D (Caltrate 600 Plus *), 1 TAB PO DAILY Enalapril Maleate (Vasotec), 20 MG PO BID Garlic (Garlic), 1 CAP PO BID Hydrochlorothiazide (Hydrochlorothiazide), 25 MG PO DAILY Meclizine HCl (Meclizine HCl), 1 TAB PO DAILY Meclizine Hcl (Meclizine Hcl), 1 TAB PO DAILYBD Mometasone Furoate (Nasal) (Nasonex), 2 [place] DAILY Multiple Vitamin (Multivitamin), 1 TAB PO DAILY Sunflower-3 Fatty Acids (Sunflower-3), 500 MG PO DAILY Plant Sterols And Stanols (Cholest Off), 2 TAB PO DAILY Potassium Chloride (Potassium Chloride Er), 10 MEQ PO BID Allergies Coded Allergies: Amoxicillin (Verified Adverse Reaction, Intermediate, nausea, 03/09/15) Clavulanic Acid (Verified Adverse Reaction, Intermediate, nausea, 03/09/15 ) Prednisone (Verified Adverse Reaction, Intermediate, nausea, 03/09/15) Sulfa Antibiotics (Verified Adverse Reaction, Intermediate, nausea, ) Doxycycline (Unverified Adverse Reaction, Unknown, nausea, 03/09/15) Physical Exam Vital Signs Date Time Temp Pulse Resp B/P (MAP) Pulse Ox O2 Delivery O2 Flow Rate FiO2 09/04/17 11:00 96 Room Air 09/04/17 10:56 79 20 161/92 96 Room Air 09/04/17 10:10 87 22 184/96 96 Room Air 09/04/17 10:06 93 09/04/17 09:59 88 18 177/98 95 Room Air 09/04/17 09:53 97 Room Air 09/04/17 09:29 36.6 95 20 156/93 96 Room Air Physical Exam GENERAL: Sitting up in bed, alert, anxious appearing, well nourished, no distress, non-toxic EYE EXAM: normal conjunctiva. PERRL and EOM's intact. OROPHARYNX: no exudate, no erythema, lips, buccal mucosa, and tongue normal and mucous membranes are moist NECK: supple, no nuchal rigidity, no adenopathy, non-tender LUNGS: Clear to auscultation. Normal chest wall mechanics HEART: no murmurs, S1 normal and S2 normal ABDOMEN: abdomen soft, non-tender, normo-active bowel sounds, no masses, no rebound or guarding. BACK: Back is symmetrical on inspection and there is no deformity, no midline tenderness, no CVA tenderness. SKIN: no rashes and no bruising UPPER EXTREMITIES: upper extremities are grossly normal. LOWER EXTREMITIES: No pitting edema. NEURO EXAM:Awake, alert, following commands, slight weakness with flexion and extension and grasp of right upper extremity, positive drift on right. Slight weakness with flexion in right hip and with plantar and dorsal flexion. No weakness noted on left side. Cranial nerves II through XII are intact. Medical Decision & Procedures ER Provider Diagnostic Interpretation: MRI IAC WITHOUT AND WITH CONTRAST from 09/03/17 Impression: 1. No evidence for abnormality in each temporal bone region. 2. Chronic microvascular changes 3. Sequela of remote hemorrhage in the left basal ganglia and posterior limb on prior MRI 2005 study. Adjacent unchanged gliosis in the the left ramirez radiata. Radiology results as stated below per my review and the radiologist's interpretation: CTA ANGIOGRAPHY OF THE HEAD CLINICAL HISTORY: Stroke symptoms. COMPARISON STUDY: MRA of the head March 09, 2015. TECHNIQUE: Helical axial images of the head were obtained following uneventful intravenous administration of 121 cc of Optiray 320. A dose lowering technique was utilized adhering to the principles of ALARA. FINDINGS: The CTA of the neck will be reported separately. The bilateral M1, M2, A1 and A2 segments are patent. There is moderate plaque within bilateral cavernous carotids without significant stenosis. No abrupt vessel cut off is identified. Note is made of a tiny 2 mm aneurysm arising from the undersurface of the supraclinoid right ICA. No additional intracranial aneurysms are identified. The right vertebral artery is dominant. The left vertebral artery is diminutive. This is unchanged. A large left posterior communicating artery is noted. No acute intracranial hemorrhage, midline shift or mass effect is present. Ventricular system is normal. Basilar cisterns are patent. No extra-axial collections are present. IMPRESSION: 1. No abrupt vessel cut off identified. 2. 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 No additional intracranial aneurysms. 3. Moderate plaque within the bilateral cavernous carotids without hemodynamically significant stenosis. Electronically signed by: Neftali Gilmore M.D. CT ANGIOGRAM OF THE NECK CLINICAL HISTORY: Strokelike symptoms. COMPARISON STUDY: No priors. TECHNIQUE: Following the IV administration of 121 of Optiray 320, CT angiogram of the neck was performed from the aortic arch to the skull base. Images are reviewed in the axial, sagittal, and coronal planes. 3-D MIPS images are created and assessed. IV contrast was administered without complication. All measurements were calculated based on NASCET criteria. A dose lowering technique was utilized adhering to the principles of ALARA. CT DOSE: 527.68 mGy.cm FINDINGS: Thoracic aorta: There is moderate carotid calcification of the thoracic aorta. Visualized portions of the thoracic aorta are normal in caliber. The aortic arch demonstrates standard 3-vessel anatomy. Right carotid arterial system: The right common carotid artery is widely patent, as are the right internal and external carotid arteries. Minimal ulcerated plaque is noted in the carotid bulb. Left carotid arterial system: The left common carotid artery is widely patent, as are the left internal and external carotid arteries. Vertebral arteries: The vertebral arteries are widely patent bilaterally, noting right-sided dominance. Intracranial vasculature: Intracranial vessels are patent at the skull base. The left vertebral artery is diminutive. Subclavian arteries: Widely patent bilaterally. Jugular veins: Widely patent bilaterally. Brain parenchyma: The visualized brain parenchyma the skull base is within normal limits. Lung apices: Partially visualized upper lobe lung parenchyma appears clear. Soft tissues: The visualized pharyngeal soft tissues are normal in appearance noting angiographic phase technique. The oropharyngeal airway appears widely patent. The salivary glands are normal in appearance. There is a 5 mm low-attenuation nodule in the right thyroid lobe. No cervical lymphadenopathy is seen. Skeletal structures: The visualized calvarium at the skull base appears intact. The imaged cervical spine is within normal limits. IMPRESSION: Unremarkable CT angiogram of the neck. Electronically signed by: Ben Marshall M.D. CHEST ONE VIEW PORTABLE CLINICAL HISTORY: Stroke COMPARISON STUDY: Chest radiograph March 09, 2015. FINDINGS: Dextroscoliosis of the upper thoracic spine is incidentally noted. No pneumothorax or pleural effusion is noted. There is no evidence for pulmonary edema. Cardiomediastinal silhouette is unremarkable. Appearance of the chest is unchanged. IMPRESSION: No acute cardiopulmonary findings. Electronically signed by: Neftali Gilmore M.D. CT OF THE HEAD WITHOUT CONTRAST CLINICAL HISTORY: Stroke COMPARISON STUDY: Head CT November 06, 2014 and MRI of the brain March 09, 2015. CT DOSE: 786.26 mGy.cm TECHNIQUE: Helical axial images of the head were obtained without IV contrast. Automated exposure control was utilized for the study. A dose lowering technique was utilized adhering to the principles of ALARA. FINDINGS: No acute intracranial hemorrhage, midline shift or mass effect is present. Ventricular system is normal. Basilar cisterns are patent. 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 There is an old infarct within the left centrum semiovale. White matter hypodensities are unchanged. There are no findings to suggest acute dural sinus thrombosis or acute territorial infarct. There are no significant calvarial abnormalities. Visualized portions of the sinuses and mastoid air cells are clear. IMPRESSION: No acute intracranial findings. Electronically signed by: Neftali Gilmore M.D. Laboratory Results 09/04/17 09:38 Red Blood Count 4.77, Mean Corpuscular Volume 88.1, Mean Corpuscular Hemoglobin 30.4, Mean Corpuscular Hemoglobin Concent 34.5, Mean Platelet Volume 11.0, Neutrophils (%) (Auto) 48.4, Lymphocytes (%) (Auto) 41.0, Monocytes (%) (Auto) 7.3, Eosinophils (%) (Auto) 2.8, Basophils (%) (Auto) 0.3, Neutrophils # (Auto) 2.80, Lymphocytes # (Auto) 2.37, Monocytes # (Auto) 0.42, Eosinophils # (Auto) 0.16, Basophils # (Auto) 0.02 09/04/17 09:56 Test 09/04/17 09:36 09/04/17 09:38 09/04/17 09:52 09/04/17 09:56 Bedside Hemoglobin 15.0 g/dl (12.0-16.0) Bedside Hematocrit 44 % (37-47) Bedside Sodium 139 mEq/L (135-144) Bedside Potassium 3.5 mEq/L (3.3-5.0) Bedside Chloride 97 mEq/L (101-112) Bedside Total CO2 31 mEq/l (24-31) Bedside Blood Urea Nitrogen 12 mg/dl (7-18) Bedside Creatinine 0.9 mg/dl (0.6-1.3) Bedside Glucose (other) 111 mg/dl (70-99) Bedside Ionized Calcium (Bo) 1.20 mmol/l (1.12-1.32) White Blood Count 5.78 K/uL (4.8-10.8) Red Blood Count 4.77 M/uL (4.2-5.4) Hemoglobin 14.5 g/dL (12.0-16.0) Hematocrit 42.0 % (37-47) Mean Corpuscular Volume 88.1 fL (80-100) Mean Corpuscular Hemoglobin 30.4 pg (25-34) Mean Corpuscular Hemoglobin Concent 34.5 g/dl (32-36) Platelet Count 231 K/uL (130-400) Mean Platelet Volume 11.0 fL (7.4-10.4) Neutrophils (%) (Auto) 48.4 % Lymphocytes (%) (Auto) 41.0 % Monocytes (%) (Auto) 7.3 % Eosinophils (%) (Auto) 2.8 % Basophils (%) (Auto) 0.3 % Neutrophils # (Auto) 2.80 K/uL (1.4-6.5) Lymphocytes # (Auto) 2.37 K/uL (1.2-3.4) Monocytes # (Auto) 0.42 K/uL (0.11-0.59) Eosinophils # (Auto) 0.16 K/uL (0-0.5) Basophils # (Auto) 0.02 K/uL (0-0.2) RDW Standard Deviation 40.8 fL (36.4-46.3) RDW Coefficient of Variation 12.7 % (11.5-14.5) Immature Granulocyte % (Auto) 0.2 % Immature Granulocyte # (Auto) 0.01 K/uL (0.00-0.02) Prothrombin Time 10.7 SECONDS (9.0-12.0) Prothromb Time International Ratio 1.0 (0.9-1.1) Activated Partial Thromboplast Time 27.8 SECONDS (21.0-31.0) Partial Thromboplastin Ratio 1.1 Estimated Average Glucose 120 mg/dl Hemoglobin A1c 5.8 % (4.5-5.6) Bedside Prothrombin Time INR 1.1 (0.9-1.1) Anion Gap 4.0 mmol/L (3-11) Est Creatinine Clear Calc Drug Dose 80.4 ml/min Estimated GFR () 88.4 Estimated GFR (Non- 76.3 BUN/Creatinine Ratio 14.5 (10-20) Calcium Level 8.9 mg/dl (8.5-10.1) Magnesium Level 2.0 mg/dl (1.8-2.4) Total Creatine Kinase 104 U/L (26-192) Creatine Kinase MB 1.8 ng/ml (0.5-3.6) Creatine Kinase MB Ratio 1.7 (0-3.0) Troponin I < 0.015 ng/ml (0-0.045) Medications Administered Medications (Trade) Dose Ordered Sig/Darlene Route Start Time Stop Time Status Last Admin Dose Admin Sodium Chloride 1,000 ml @ 50 mls/hr Q20H IV 09/04/17 09:33 09/04/17 13:00 DC 09/04/17 10:02 50 MLS/HR Aspirin (Aspirin Chew) 324 mg NOW STAT PO 09/04/17 10:15 09/04/17 10:16 DC 09/04/17 10:22 324 MG ECG Per My Interpretation Indication: weakness Rate (beats per minute): 85 Rhythm: normal sinus Findings: other (normal axis, poor baseline in inferior and lateal, questionable st depression in lateral ) ED Course ED COURSE: Vital signs were reviewed and showed hypertensive The patients medical record was reviewed The above diagnostic studies were performed and reviewed. ED treatments and interventions as stated above. 0931: The patient was evaluated in room A12B. A complete history and physical examination was performed. Review of EMR shows the patient had a left thalamic bleed in 2005. 0933: Ordered Sodium Chloride 1000 ml @ 50 mls/hr IV. 0947: I reviewed the patient's case with Dr. Joan Evangelista. 1013: I reviewed the patient's case with Dr. Joan Evangelista. She said not to give the patient tPA due to her previous brain bleed. 1015: Ordered Aspirin 324 mg PO. 1024: I updated the patient on her test results. 1038: I reviewed the patient's case with Dr. Castro Singletary. He will evaluate the patient for further management. 1045: Upon reevaluation, the patient is resting.I discussed my findings with the patient and she understands and agrees with the treatment plan. Based on the patients age, coexisting illnesses, exam and lab findings the decision to treat as an inpatient was made. The patient remained stable while under my care. The patient will be evaluated for further management. Medical Decision Differential Diagnosis includes but is not limited to ischemic Stroke, hemorrhagic stroke, bells palsy, mass, neoplasm, migraine headache, seizure, subarachnoid hemorrhage, TIA, and transient global amnesia. Patient is a 67-year-old female who presents the ER for sudden onset of right- sided weakness at 8 AM. Upon arrival stroke alert was called. Patient was taken to the CAT scan where CT head was performed. Her history with a previous hemorrhagic CVA in 2005 was reviewed. I do not believe that this was a hypertensive bleed as her blood pressures at that time were 150s. Because of this I did perform a CTA is a favored she would likely not be a thrombolytic candidate. Did discuss with [facility] neurology. Patient was evaluated at bedside by them. Decision was made in combination with the patient myself and [facility]a neurology not to give TPA with the previous brain bleed. CBC along with BMP, LFTs, bilirubin and troponin was negative. EKG had a poor baseline but nonischemic. INR was normal. Patient was given fluids and aspirin following passing the swallowing screen. Patient was admitted to internal medicine with a CVA. Medication Reconcilliation Current Medication List: was personally reviewed by me Blood Pressure Screening Patient's blood pressure: Elevated blood pressure Blood pressure disposition: Elevated BP felt to be situational Consults Time Called: 09 Consulting Physician: Dr. Franco Telestroke Returned Call: 0947 I reviewed the patient's case with Dr. Franco Telestroke. Additional Consults: Time Called: 1030 Consulted Physician: Dr. Castro Singletary Returned Call: [phone] Additional Comments: I reviewed the patient's case with Dr. Castro Singletary. He will evaluate the patient for further management. Impression Primary Impression: CVA (cerebral vascular accident) Scribe Attestation The scribe's documentation has been prepared under my direction and personally reviewed by me in its entirety. I confirm that the note above accurately reflects all work, treatment, procedures, and medical decision making performed by me. Departure Information Dispostion Being Evaluated By Hospitalist Referrals Faheem Nicole D.O. (PCP) Patient Instructions My [facility] Stroke History Time Last Known Well 8 am Stroke t-PA Criteria Reviewed Does NOT meet criteria for t-PA Reason t-PA Not Given Contraindicated Problem Qualifiers Primary Impression: CVA (cerebral vascular accident) CVA mechanism: unspecified Qualified Codes: I63.9 - Cerebral infarction, unspecified
[2017-09-04] MEDS ORDERED: MECLIZINE HCL 12.5 MG TAB PO SCH (16:15)
[2017-09-04] MEDS: ATORVASTATIN 40 MG TAB PO SCH (17:10)
--- NOTE | 2017-09-04 18:50 | DIAGNOSTIC IMAGING REPORT ---
BRAIN COMBO CLINICAL HISTORY: 67 years-old Female presenting with Stroke, off balance, right arm and leg weakness, history of stroke and intracranial hemorrhage at 12 years of age. TECHNIQUE: Multisequence, multiplanar MR imaging of the brain was performed before and after the administration of intravenous contrast. IV contrast: 8.3 mL of Gadavist. COMPARISON: 03/09/[address] from earlier the same day. FINDINGS: Ventricles and sulci normal in size. Periventricular and subcortical white matter T2/FLAIR hyperintensity, nonspecific but likely indicative of chronic small vessel ischemic change. No mass effect or midline shift. No restricted diffusion to suggest acute ischemia. No hemorrhage. No extra-axial fluid collection. T2 skull base flow voids preserved. No abnormal parenchymal enhancement. Bone marrow signal intensity within the calvarium within normal limits. IMPRESSION: 1. Chronic small vessel ischemic change. No acute intracranial abnormality. No abnormal enhancement. Electronically signed by: Thaddeus Ivan M.D. 09/04/2017 6:49 PM Dictated Date/Time: 09/04/2017 6:44 PM
[2017-09-04 19:45] VITALS: BP 134/87; PULSE 94; TEMP 36.8; O2SAT 95
[2017-09-04] MEDS: POTASSIUM CHLORIDE 10 MEQ TABCR PO SCH (20:26)
[2017-09-04] MEDS ORDERED: MECLIZINE HCL 25 MG TAB PO SCH (21:00)
[2017-09-04 23:00] VITALS: BP 112/75; PULSE 86; TEMP 37; O2SAT 96
[2017-09-05 03:00] VITALS: BP 110/65; PULSE 81; TEMP 36.7; O2SAT 95
[2017-09-05 06:30] LABS: HEMATOCRIT 44.1 % (37-47); HEMOGLOBIN 15.1 g/dL (12.0-16.0); MEAN CELL VOLUME 87.7 fL (80-100); MEAN CORPUSCULAR HGB CONC 34.2 g/dl (32-36); MEAN PLATELET VOLUME 11.1 fL (7.4-10.4); PLATELET COUNT 255 K/uL (130-400); RED CELL DISTRIBUTION WIDTH CV 12.8 % (11.5-14.5); RED CELL DISTRIBUTION WIDTH SD 41.1 fL (36.4-46.3); WHITE BLOOD COUNT 5.86 K/uL (4.8-10.8)
[2017-09-05 07:04] LABS: CALCIUM 9.4 mg/dl (8.5-10.1); CREATININE 0.75 mg/dl (0.60-1.20); POTASSIUM 3.6 mmol/L (3.5-5.1)
[2017-09-05 07:10] VITALS: BP 126/78; PULSE 75; TEMP 36.5; O2SAT 94
[2017-09-05] MEDS: POTASSIUM CHLORIDE 10 MEQ TABCR PO SCH (08:01)
[2017-09-05] MEDS: ATORVASTATIN 40 MG TAB PO SCH (08:01)
[2017-09-05 08:50] LABS: BASO % 0.3 %; BASO ABS # 0.02 K/uL (0-0.2); EOS % 4.3 %; EOS ABS # 0.25 K/uL (0-0.5); IG# 0.01 K/uL (0.00-0.02); LYMPH % 51.4 %; LYMPH ABS # 3.01 K/uL (1.2-3.4); MONO % 8.4 %; MONO ABS # 0.49 K/uL (0.11-0.59); NEUT % 35.4 %; NEUT ABS # 2.08 K/uL (1.4-6.5)
[2017-09-05] MEDS ORDERED: MECLIZINE HCL 12.5 MG TAB PO SCH (09:00)
[2017-09-05] MEDS ORDERED: OMEGA-3 (PURIFIED FISH OIL) 1 GM CAP PO SCH (09:00)
[2017-09-05] MEDS ORDERED: ASPIRIN 81 MG ECTAB PO SCH (09:00)
[2017-09-05] MEDS ORDERED: MULTIVITAMIN TAB PO SCH (09:00)
[2017-09-05] MEDS ORDERED: CALCIUM 600MG + VIT D 400 IU TAB PO SCH (09:00)
--- NOTE | 2017-09-05 10:11 | Progress Note ---
Medicine Progress Note Date & Time of Visit: Sep 05, 2017 at 09:51. Subjective Pt was seen and examined Sitting at the edge of the bed with no distress Pt walked to the bathroom this morning with assistance She said that she still have weakness in the right side Pt said that she does not have any weakness and slurred speech Denies any chest pain, palpitation, dizziness and SOB Objective Last 8 Hrs Date Time Temp Pulse Resp B/P (MAP) Pulse Ox O2 Delivery O2 Flow Rate FiO2 09/05/17 08:00 Room Air 09/05/17 07:10 36.5 75 20 126/78 (94) 94 Room Air 09/05/17 04:00 Room Air 09/05/17 03:00 36.7 81 17 110/65 (80) 95 Room Air Physical Exam: General- No acute distress Head- atraumatic Eyes- PERRL, EOMI ENT- oropharynx clear Neck- supple, no JVD Lungs- clear to auscultation Heart- regular rhythm Abdomen- normal bowel sounds, soft Extremities- no calf tenderness Neuro- alert, oriented x 3; PERRL, EOMI; no facial palsy, strength 4/5 RUE, decrease hand solution sales senior executive Skin- warm & dry Laboratory Results: Last 24 Hours Test 09/04/17 09:52 09/04/17 09:56 09/05/17 06:06 Bedside Prothrombin Time INR 1.1 Sodium Level 135 mmol/L 138 mmol/L Potassium Level 4.2 mmol/L 3.6 mmol/L Chloride Level 101 mmol/L 103 mmol/L Carbon Dioxide Level 30 mmol/L 29 mmol/L Anion Gap 4.0 mmol/L 6.0 mmol/L Blood Urea Nitrogen 12 mg/dl 12 mg/dl Creatinine 0.80 mg/dl 0.75 mg/dl Est Creatinine Clear Calc Drug Dose 80.4 ml/min 78.7 ml/min Estimated GFR () 88.4 95.6 Estimated GFR (Non- 76.3 82.5 BUN/Creatinine Ratio 14.5 16.1 Random Glucose 95 mg/dl 103 mg/dl Calcium Level 8.9 mg/dl 9.4 mg/dl Magnesium Level 2.0 mg/dl Total Creatine Kinase 104 U/L Creatine Kinase MB 1.8 ng/ml Creatine Kinase MB Ratio 1.7 Troponin I < 0.015 ng/ml White Blood Count 5.86 K/uL Red Blood Count 5.03 M/uL Hemoglobin 15.1 g/dL Hematocrit 44.1 % Mean Corpuscular Volume 87.7 fL Mean Corpuscular Hemoglobin 30.0 pg Mean Corpuscular Hemoglobin Concent 34.2 g/dl Platelet Count 255 K/uL Mean Platelet Volume 11.1 fL Neutrophils (%) (Auto) 35.4 % Lymphocytes (%) (Auto) 51.4 % Monocytes (%) (Auto) 8.4 % Eosinophils (%) (Auto) 4.3 % Basophils (%) (Auto) 0.3 % Neutrophils # (Auto) 2.08 K/uL Lymphocytes # (Auto) 3.01 K/uL Monocytes # (Auto) 0.49 K/uL Eosinophils # (Auto) 0.25 K/uL Basophils # (Auto) 0.02 K/uL RDW Standard Deviation 41.1 fL RDW Coefficient of Variation 12.8 % Immature Granulocyte % (Auto) 0.2 % Immature Granulocyte # (Auto) 0.01 K/uL Triglycerides Level 118 mg/dl Cholesterol Level 228 mg/dl HDL Cholesterol 60 mg/dl LDL Cholesterol, Calculated 144 mg/dl VLDL Cholesterol, Calculated 24 mg/dl Cholesterol/HDL Ratio 3.8 Assessment & Plan RIGHT-SIDED WEAKNESS R/O CVA Possible related to TIA Stroke alert called, but not a candidate for TPA due to history of subarachnoid [place] [address] negative for acute findings CTA neck was negative CTA head showed tiny 2 mm aneurysm arising from the supraclinoid right ICA. No additional intracranial aneurysms. MRI head showed no acute intracranial abnormality Continue statin and aspirin No arrhythmia on tele monitor PT/OT Neuro on board Fall precaution ECHO * Injection of contrast documented no interatrial shunt. * The interatrial septum is intact with no evidence for an atrial septal defect. * The left ventricle is normal in size. * Left ventricular systolic function is normal. * Ejection Fraction = 55-60%. * The right ventricular systolic function is normal. * The left atrial size is normal. * Right atrial size is normal. * No significant valvular pathology. HYPERTENSION BP stable Continue holding enalapril and HCTZ DYSLIPIDEMIA Chol 228, LDL 144, HDL 60, trig 168 Continue Lipitor DVT PROPHYLAXIS -SCDs due to history of intracranial hemorrhage DISPOSITION Will discharge once medically stable Current Inpatient Medications: Current Inpatient Medications Medications (Trade) Dose Ordered Sig/Darlene Route Start Time Stop Time Status Last Admin Dose Admin Ioversol (Optiray 300) 121 ml UD PRN IV 09/04/17 10:00 09/08/17 09:59 Acetaminophen (Tylenol Tab) 650 mg Q4H PRN PO 09/04/17 11:45 10/04/17 11:44 Ondansetron HCl (Zofran Inj) 4 mg Q6H PRN IV 09/04/17 11:45 10/04/17 11:44 Aspirin (Ecotrin Tab) 81 mg QAM PO 09/05/17 09:00 10/05/17 08:59 09/05/17 08:02 81 MG Atorvastatin Calcium (Lipitor Tab) 40 mg QAM PO 09/04/17 12:00 10/04/17 11:59 09/05/17 08:01 40 MG Miscellaneous Information (Pharmacist Discharge Med Rec Consult) 1 ea UD PRN N/A 09/04/17 12:00 10/04/17 11:59 Calcium/Vitamin D (Caltrate Plus Tab) 1 tab DAILY PO 09/05/17 09:00 10/05/17 08:59 09/05/17 08:03 1 TAB Multivitamins (Multivitamin Tab) 1 tab DAILY PO 09/05/17 09:00 10/05/17 08:59 09/05/17 08:01 1 TAB Meclizine HCl (Antivert Tab) 12.5 mg DAILY PO 09/05/17 09:00 10/05/17 08:59 09/05/17 08:02 12.5 MG Fish Oil ([place]-3 (Purified Fish Oil) Cap) 1 gm DAILY PO 09/05/17 09:00 10/05/17 08:59 09/05/17 08:03 1 GM Potassium Chloride (Klor-Con M10) 10 meq BID PO 09/04/17 21:00 10/04/17 20:59 09/05/17 08:01 10 MEQ Alprazolam (Xanax Tab) 0.5 mg ONE PRN PO 09/04/17 15:00 10/04/17 14:59 09/04/17 17:10 0.5 MG Meclizine HCl (Antivert Tab) 25 mg HS PO 09/04/17 21:00 10/04/17 16:14 09/04/17 20:25 25 MG
[2017-09-05 10:51] VITALS: BP 124/81; PULSE 88; TEMP 37; O2SAT 92
--- NOTE | 2017-09-05 13:18 | PROGRESS NOTE ---
DATE: 09/05/2017 SUBJECTIVE: I am seeing Mrs. 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 Her MRI of the brain was unremarkable. No high grade vascular stenosis and no cardiovascular source. She has been started on aspirin and statin. She has not had any recurrent events. Exam reveals her to have a mild right drift and to be a cautious ambulator which is apparently not her baseline. IMPRESSION: Radiographically, this was a transient event. It is possible she had a very small vessel infarction causing her to have some residual neurologic deficit. PLAN: Aspirin, statin therapy, outpatient physical therapy. We will see the patient in followup. We may consider a repeat MRI of the brain if the neurologic symptoms persist and we will arrange Zio patch for ongoing cardiac monitoring as an outpatient. ALMAS
[2017-09-05 15:29] VITALS: BP 138/92; PULSE 81; TEMP 37.1; O2SAT 96
[2017-09-05] MEDS ORDERED: LPT40 PO (16:43)
[2017-09-05] MEDS ORDERED: ASPI-320 PO (16:43)
--- NOTE | 2017-09-05 16:56 | Discharge Instructions ---
Discharge Instructions Date of Service Sep 05, 2017. Admission Reason for Admission: Right Sided Weakness Discharge Discharge Diagnosis / Problem: Right sided weakness, Dyslipidemia Discharge Goals Goal(s): Decrease discomfort, Improve function, Improve disease control Activity Recommendations Activity Limitations: resume your previous activity (as tolerated) . Instructions / Follow-Up Instructions / Follow-Up Follow up with your primary care provider within 1 week (Dr. Nicole's office will contact you on Thursday for the follow up appointment) Follow up with Neurology Dr. Cooper between 3 to 4 weeks (Dr. Cooper's office will contact you on Thursday for the follow up appointment) Continue physical therapy (Script given) Fall precaution Hold Enalapril and Hydrochlorothiazide for now. Continue monitor blood pressure If Blood pressure starts to rise close to 140/90, please resume blood pressure medication (Enalapril and Hydrochlorothiazide) Starting on aspirin 81mg daily. (Please notify your physician if you develop any abnormal bleeding such as blood in your stool and your urine) Follow a low cholesterol diet. Starting on Lipitor 40mg daily (your physician will check your liver enzymes in 1 -2 weeks after starting on Lipitor. Risk Factors for Stroke: You can reduce your chances of stroke by working with your medical provider to adopt a healthy lifestyle. Some specific ways to lower your chance of stroke are: * If you are a smoker, now is the time to stop smoking cigarettes * If you are diabetic, improve the control of your blood sugars * Avoid excessive amounts of alcohol * Control high blood pressure * Lose weight if you are overweight * Be sure to lead an active lifestyle * Eat a healthy diet low in salt, cholesterol and fat You should know about other risk factors for stroke that you are unable to control. These include: * Age 55 years or older * Male gender * Certain racial groups: , or / * Family History of Stroke, Mini stroke or Heart Attack * Sickle Cell Disease Follow Up: It is important for you to keep your follow up appointments with your medical provider. Current Hospital Diet Patient's current hospital diet: AHA Diet (Heart Healthy) Discharge Diet Recommended Diet: AHA Diet (Heart Healthy) Pending Studies Studies pending at discharge: no Laboratory Results Hemoglobin A1c Test 09/04/17 09:38 Range/Units Estimated Average Glucose 120 mg/dl Hemoglobin A1c 5.8 H 4.5-5.6 % Lipid Panel Test 09/05/17 06:06 Range/Units Triglycerides Level 118 0-150 mg/dl Cholesterol Level 228 H 0-200 mg/dl HDL Cholesterol 60 mg/dl Cholesterol/HDL Ratio 3.8 LDL Cholesterol, Calculated 144 mg/dl Medical Emergencies . Who to Call and When: Medical Emergencies: If at any time you feel your situation is an emergency, please call 911 immediately. . Non-Emergent Contact Non-Emergency issues call your: Primary Care Provider . . "Provider Documentation" section prepared by Brooklyn Aquino. .
--- NOTE | 2017-09-05 17:34 | Pharmacy Progress Note ---
Pharmacist Stroke Counseling Date of Service Sep 05, 2017. Scope Pharmacy has been consulted to provide medication discharge counseling for this patient admitted with ischemic stroke/hemorrhagic stroke/ transient ischemic attack as per the Pharmacist Discharge Counseling for Stroke Patients Protocol. Medications on Discharge New Medications: Aspirin (Aspirin EC Low Dose) 81 Mg Ectab 81 MG PO QAM for 30 Days Atorvastatin (Lipitor) 40 Mg Tab 40 MG PO QAM for 30 Days, #30 TAB Continued Medications: Calcium/Vitamin D (Caltrate 600 Plus *) Tab 1 TAB PO DAILY Enalapril Maleate (Vasotec) 20 Mg Tab 20 MG PO BID, TAB 3 Refills Garlic (Garlic) 10 Mg Cap 1 CAP PO BID Hydrochlorothiazide (Hydrochlorothiazide) 25 Mg Tab 25 MG PO DAILY Meclizine Hcl (Meclizine Hcl) 25 Mg Tab 1 TAB PO QPM for 10 Days, TAB Meclizine HCl (Meclizine HCl) 12.5 Mg Tab 1 TAB PO QAM for 30 Days, #30 TAB 3 Refills Mometasone Furoate (Nasal) (Nasonex) 50 Mcg/ Spr 2 SPRY ROWAN DAILY, INHALER 5 Refills Multiple Vitamin (Multivitamin) 1 Tab Tab 1 TAB PO DAILY, TAB [place]-3 Fatty Acids ([place]-3) 1 Cap Cap 500 MG PO DAILY Plant Sterols And Stanols (Cholest Off) 450 Mg Tab 2 TAB PO DAILY Potassium Chloride (Potassium Chloride Er) 10 Meq Cap 10 MEQ PO BID, CAP 3 Refills Provider's discharge instructions state pt is not to resume enalapril or hydrochlorothiazide unless BP above 140/90. I advised pt she should hold the Cholest Off supplement on discharge as she started this on her own and she is now starting Lipitor Action The above medications, specifically ones for stroke treatment/prophylaxis, have been reviewed in detail with the patient and/or patient truck sales representative(s) prior to discharge. This includes indication, common adverse reactions, drug interactions, and medication administration. Medication counseling has been employed using the teach-back method to ensure understanding. Outcome The patient and/or patient truck sales representative(s) have demonstrated understanding of the medications. Please note, they are aware that the pharmacist will call them within 72 hours post-discharge to confirm that the appropriate medications are being taken and answer any further medication related questions the patient might have at that time. Contact information Individual to be contacted: Patient Phone number: [phone] Best time to call: anytime Additional comments: Patient was given written Rx's for Aspirin 81mg daily and Lipitor 40mg PO daily with discharge paperwork. Patient still has some residual R sided weakness but has improved since admission. She states she has a h/o hemorrhagic stroke ~12 years ago which produced similar stroke symptoms. Patient's provider (Dr Nicole) will be contacting the patient on Thursday to schedule f/u appointment. Thank you for allowing pharmacy to be involved in the care of this patient. Please call [phone] or [phone] with any additional questions
--- NOTE | 2017-09-07 07:48 | Discharge Summary ---
Discharge Summary Date of Service Sep 07, 2017. Discharge Summary Admission Date: Sep 04, 2017 at 11:45 Discharge Date: Sep 05, 2017 Discharge Disposition: Home with services Principal Diagnosis: RIGHT-SIDED WEAKNESS Secondary Diagnoses/Problems: HTN DYSLIPIDEMIA Procedures: BRAIN COMBO CLINICAL HISTORY: 67 years-old Female presenting with Stroke, off balance, right arm and leg weakness, history of stroke and intracranial hemorrhage at 12 years of age. TECHNIQUE: Multisequence, multiplanar MR imaging of the brain was performed before and after the administration of intravenous contrast. IV contrast: 8.3 mL of Gadavist. COMPARISON: 03/09/[address] from earlier the same day. FINDINGS: Ventricles and sulci normal in size. Periventricular and subcortical white matter T2/FLAIR hyperintensity, nonspecific but likely indicative of chronic small vessel ischemic change. No mass effect or midline shift. No restricted diffusion to suggest acute ischemia. No hemorrhage. No extra-axial fluid collection. T2 skull base flow voids preserved. No abnormal parenchymal enhancement. Bone marrow signal intensity within the calvarium within normal limits. IMPRESSION: 1. Chronic small vessel ischemic change. No acute intracranial abnormality. No abnormal enhancement. Electronically signed by: Thaddeus Ivan M.D. 09/04/2017 6:49 PM Dictated Date/Time: 09/04/2017 6:44 PM CTA ANGIOGRAPHY OF THE HEAD CLINICAL HISTORY: Stroke symptoms. COMPARISON STUDY: MRA of the head March 09, 2015. TECHNIQUE: Helical axial images of the head were obtained following uneventful intravenous administration of 121 cc of Optiray 320. A dose lowering technique was utilized adhering to the principles of ALARA. FINDINGS: The CTA of the neck will be reported separately. The bilateral M1, M2, A1 and A2 segments are patent. There is moderate plaque within bilateral cavernous carotids without significant stenosis. No abrupt vessel cut off is identified. Note is made of a tiny 2 mm aneurysm arising from the undersurface of the supraclinoid right ICA. No additional intracranial aneurysms are identified. The right vertebral artery is dominant. The left vertebral artery is diminutive. This is unchanged. A large left posterior communicating artery is noted. No acute intracranial hemorrhage, midline shift or mass effect is present. Ventricular system is normal. Basilar cisterns are patent. No extra-axial collections are present. IMPRESSION: 1. No abrupt vessel cut off identified. 2. 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 No additional intracranial aneurysms. 3. Moderate plaque within the bilateral cavernous carotids without hemodynamically significant stenosis. Electronically signed by: Neftali Gilmore M.D. 09/04/2017 10:04 AM Dictated Date/Time: 09/04/2017 9:[address] ANGIOGRAM OF THE NECK CLINICAL HISTORY: Strokelike symptoms. COMPARISON STUDY: No priors. TECHNIQUE: Following the IV administration of 121 of Optiray 320, CT angiogram of the neck was performed from the aortic arch to the skull base. Images are reviewed in the axial, sagittal, and coronal planes. 3-D MIPS images are created and assessed. IV contrast was administered without complication. All measurements were calculated based on NASCET criteria. A dose lowering technique was utilized adhering to the principles of ALARA. CT DOSE: 527.68 mGy.cm FINDINGS: Thoracic aorta: There is moderate carotid calcification of the thoracic aorta. Visualized portions of the thoracic aorta are normal in caliber. The aortic arch demonstrates standard 3-vessel anatomy. Right carotid arterial system: The right common carotid artery is widely patent, as are the right internal and external carotid arteries. Minimal ulcerated plaque is noted in the carotid bulb. Left carotid arterial system: The left common carotid artery is widely patent, as are the left internal and external carotid arteries. Vertebral arteries: The vertebral arteries are widely patent bilaterally, noting right-sided dominance. Intracranial vasculature: Intracranial vessels are patent at the skull base. The left vertebral artery is diminutive. Subclavian arteries: Widely patent bilaterally. Jugular veins: Widely patent bilaterally. Brain parenchyma: The visualized brain parenchyma the skull base is within normal limits. Lung apices: Partially visualized upper lobe lung parenchyma appears clear. Soft tissues: The visualized pharyngeal soft tissues are normal in appearance noting angiographic phase technique. The oropharyngeal airway appears widely patent. The salivary glands are normal in appearance. There is a 5 mm low-attenuation nodule in the right thyroid lobe. No cervical lymphadenopathy is seen. Skeletal structures: The visualized calvarium at the skull base appears intact. The imaged cervical spine is within normal limits. IMPRESSION: Unremarkable CT angiogram of the neck. Electronically signed by: Ben Marshall M.D. 09/04/2017 10:06 AM Dictated Date/Time: 09/04/2017 9:56 AM CHEST ONE VIEW PORTABLE CLINICAL HISTORY: Stroke COMPARISON STUDY: Chest radiograph March 09, 2015. FINDINGS: Dextroscoliosis of the upper thoracic spine is incidentally noted. No pneumothorax or pleural effusion is noted. There is no evidence for pulmonary edema. Cardiomediastinal silhouette is unremarkable. Appearance of the chest is unchanged. IMPRESSION: No acute cardiopulmonary findings. Electronically signed by: Neftali Gilmore M.D. 09/04/2017 10:07 AM Dictated Date/Time: 09/04/2017 10:[address] OF THE HEAD WITHOUT CONTRAST CLINICAL HISTORY: Stroke COMPARISON STUDY: Head CT November 06, 2014 and MRI of the brain March 09, 2015. CT DOSE: 786.26 mGy.cm TECHNIQUE: Helical axial images of the head were obtained without IV contrast. Automated exposure control was utilized for the study. A dose lowering technique was utilized adhering to the principles of ALARA. FINDINGS: No acute intracranial hemorrhage, midline shift or mass effect is present. Ventricular system is normal. Basilar cisterns are patent. 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 There is an old infarct within the left centrum semiovale. White matter hypodensities are unchanged. There are no findings to suggest acute dural sinus thrombosis or acute territorial infarct. There are no significant calvarial abnormalities. Visualized portions of the sinuses and mastoid air cells are clear. IMPRESSION: No acute intracranial findings. Electronically signed by: Neftali Gilmore M.D. 09/04/2017 9:52 AM Dictated Date/Time: 09/04/2017 9:43 AM ECHO Interpretation Summary * Name: SARAH VARELA Study Date: 09/04/2017 01:11 PM BP: 168/98 mmHg * Patient Location: [facility] HR: 80 * : 1950 (M/d/yyyy) Gender: Female Height: 70 in * Age: 67 yrs Ethnicity: CA Weight: 184 lb * Ordering Physician: Isabelle Pond * Performed By: Roslyn Wyman RDCS * * Reason For Study: Cerebral Vascular Attack * BSA: 2.0 m2 * -- Conclusions -- * Injection of contrast documented no interatrial shunt. * The interatrial septum is intact with no evidence for an atrial septal defect. * The left ventricle is normal in size. * Left ventricular systolic function is normal. * Ejection Fraction = 55-60%. * The right ventricular systolic function is normal. * The left atrial size is normal. * Right atrial size is normal. * No significant valvular pathology. Procedure Details * A complete two-dimensional transthoracic echocardiogram was performed (2D, M- mode, Doppler and color flow Doppler). * A saline contrast injection was performed to assess for cardiac shunting. * The injection was performed through an intravenous line in the left arm. * The attending nurse who injected the saline contrast was Linda Callahan RN. * A total of 20 cc of agitated saline was given. Left Ventricle * The left ventricle is normal in size. * There is normal left ventricular wall thickness. * Ejection Fraction = 55-60%. * Left ventricular systolic function is normal. Right Ventricle * The right ventricle is normal size. * The right ventricular systolic function is normal. Atria * The left atrial size is normal. * Right atrial size is normal. * Injection of contrast documented no interatrial shunt. * The interatrial septum is intact with no evidence for an atrial septal defect. Mitral Valve * The mitral valve anatomy is normal. * Significant mitral regurgitation is absent. Tricuspid Valve * The tricuspid valve anatomy is normal. * Significant tricuspid regurgitation is absent. Aortic Valve * The aortic valve is tricuspid. The leaflet thickness if normal. There is no aortic stenosis, and no significant insufficiency. Pulmonic Valve * The pulmonic valve is not well visualized. Great Vessels * The aortic root and proximal ascending aorta are normal sized. Pericardium/Pleural * There is no pericardial effusion. Consultations: NEURO Medication Reconciliation New Medications: Aspirin (Aspirin EC Low Dose) 81 Mg Ectab 81 MG PO QAM for 30 Days Atorvastatin (Lipitor) 40 Mg Tab 40 MG PO QAM for 30 Days, #30 TAB Continued Medications: Calcium/Vitamin D (Caltrate 600 Plus *) Tab 1 TAB PO DAILY Enalapril Maleate (Vasotec) 20 Mg Tab 20 MG PO BID, TAB 3 Refills Garlic (Garlic) 10 Mg Cap 1 CAP PO BID Hydrochlorothiazide (Hydrochlorothiazide) 25 Mg Tab 25 MG PO DAILY Meclizine Hcl (Meclizine Hcl) 25 Mg Tab 1 TAB PO QPM for 10 Days, TAB Meclizine HCl (Meclizine HCl) 12.5 Mg Tab 1 TAB PO QAM for 30 Days, #30 TAB 3 Refills Mometasone Furoate (Nasal) (Nasonex) 50 Mcg/ Spr 2 SPRY ROWAN DAILY, INHALER 5 Refills Multiple Vitamin (Multivitamin) 1 Tab Tab 1 TAB PO DAILY, TAB Orange-3 Fatty Acids (Orange-3) 1 Cap Cap 500 MG PO DAILY Plant Sterols And Stanols (Cholest Off) 450 Mg Tab 2 TAB PO DAILY Potassium Chloride (Potassium Chloride Er) 10 Meq Cap 10 MEQ PO BID, CAP 3 Refills Admission Information HPI (per Admitting provider): 67-year-old female who presents to the ER with chief complaint of right-sided weakness. Patient reports she woke up feeling in her usual state of health. She was walking through a store when she reports her right leg started to not feel right. She felt as though maybe the floor was slippery. She then went home and noticed that her right arm started to become weak. She had trouble holding her coffee cup with her right hand. She also reports some difficulty walking noting that her right leg was weak and that she was falling to the right side. Patient denies slurred speech, facial droop, or dysphasia. No headache or blurred vision. She denies chest pain and shortness of breath. No lightheadedness, dizziness, diaphoresis, or syncopal events. She denies abdominal pain, nausea, vomiting, diarrhea. No other recent illnesses, fevers, or chills. She denies any urinary symptoms. In the ED symptoms have slowly started to resolve. Patient reports she has almost back to her baseline. Patient underwent head CT as well as CTA head and neck without acute findings. Alert was called however TPA was not given due to the patient's history of intracranial hemorrhage in the past. Vital signs remained stable. Patient was given full dose aspirin. Physical Exam (per Admitting): General Appearance: WD/WN, no apparent distress Head: normocephalic, atraumatic Eyes: normal inspection, PERRL, EOMI, sclerae normal ENT: hearing grossly normal, + pertinent finding (Mucous membranes moist) Neck: supple, no JVD, no carotid bruits Respiratory/Chest: lungs clear, normal breath sounds, no respiratory distress Cardiovascular: regular rate, rhythm, no edema, normal peripheral pulses Abdomen/GI: normal bowel sounds, non tender, soft, no organomegaly Extremities/Musculoskelatal: normal inspection, no calf tenderness, normal capillary refill Neurologic/Psych: alert, normal mood/affect, oriented x 3, + pertinent finding (Right lower extremity strength 4/5; otherwise no focal deficits noted) Skin: normal color, warm/dry Hospital Course RIGHT-SIDED WEAKNESS R/O CVA Possible related to TIA Stroke alert called, but not a candidate for TPA due to history of subarachnoid hemorrhage in [address] negative for acute findings CTA neck was negative CTA head showed tiny 2 mm aneurysm arising from the supraclinoid right ICA. No additional intracranial aneurysms. MRI head showed no acute intracranial abnormality Continue statin and aspirin No arrhythmia on tele monitor PT/OT Neuro on board Fall precaution ECHO * Injection of contrast documented no interatrial shunt. * The interatrial septum is intact with no evidence for an atrial septal defect. * The left ventricle is normal in size. * Left ventricular systolic function is normal. * Ejection Fraction = 55-60%. * The right ventricular systolic function is normal. * The left atrial size is normal. * Right atrial size is normal. * No significant valvular pathology. HYPERTENSION BP stable Continue holding enalapril and HCTZ DYSLIPIDEMIA Chol 228, LDL 144, HDL 60, trig 168 Continue Lipitor DVT PROPHYLAXIS -SCDs due to history of intracranial hemorrhage DISPOSITION Will discharge once medically stable Total time spent on discharge = 35 MINUTES This includes examination of the patient, discharge planning, medication reconciliation, and communication with other providers. Discharge Instructions Discharge Instructions Date of Service Sep 05, 2017. Admission Reason for Admission: Right Sided Weakness Discharge Discharge Diagnosis / Problem: Right sided weakness, Dyslipidemia Discharge Goals Goal(s): Decrease discomfort, Improve function, Improve disease control Activity Recommendations Activity Limitations: resume your previous activity (as tolerated) . Instructions / Follow-Up Instructions / Follow-Up Follow up with your primary care provider within 1 week (Dr. Nicole's office will contact you on Thursday for the follow up appointment) Follow up with Neurology Dr. oCoper between 3 to 4 weeks (Dr. Cooper's office will contact you on Thursday for the follow up appointment) Continue physical therapy (Script given) Fall precaution Hold Enalapril and Hydrochlorothiazide for now. Continue monitor blood pressure If Blood pressure starts to rise close to 140/90, please resume blood pressure medication (Enalapril and Hydrochlorothiazide) Starting on aspirin 81mg daily. (Please notify your physician if you develop any abnormal bleeding such as blood in your stool and your urine) Follow a low cholesterol diet. Starting on Lipitor 40mg daily (your physician will check your liver enzymes in 1 -2 weeks after starting on Lipitor. Risk Factors for Stroke: You can reduce your chances of stroke by working with your medical provider to adopt a healthy lifestyle. Some specific ways to lower your chance of stroke are: * If you are a smoker, now is the time to stop smoking cigarettes * If you are diabetic, improve the control of your blood sugars * Avoid excessive amounts of alcohol * Control high blood pressure * Lose weight if you are overweight * Be sure to lead an active lifestyle * Eat a healthy diet low in salt, cholesterol and fat You should know about other risk factors for stroke that you are unable to control. These include: * Age 55 years or older * Male gender * Certain racial groups: , or / * Family History of Stroke, Mini stroke or Heart Attack * Sickle Cell Disease Follow Up: It is important for you to keep your follow up appointments with your medical provider. Current Hospital Diet Patient's current hospital diet: AHA Diet (Heart Healthy) Discharge Diet Recommended Diet: AHA Diet (Heart Healthy) Pending Studies Studies pending at discharge: no Laboratory Results Hemoglobin A1c Test 09/04/17 09:38 Range/Units Estimated Average Glucose 120 mg/dl Hemoglobin A1c 5.8 H 4.5-5.6 % Lipid Panel Test 09/05/17 06:06 Range/Units Triglycerides Level 118 0-150 mg/dl Cholesterol Level 228 H 0-200 mg/dl HDL Cholesterol 60 mg/dl Cholesterol/HDL Ratio 3.8 LDL Cholesterol, Calculated 144 mg/dl Medical Emergencies . Who to Call and When: Medical Emergencies: If at any time you feel your situation is an emergency, please call 911 immediately. . Non-Emergent Contact Non-Emergency issues call your: Primary Care Provider . . "Provider Documentation" section prepared by Brooklyn Aquino. . Additional Copies To Faheem Nicole D.O.
--- NOTE | 2017-09-07 14:59 | Pharmacy Progress Note ---
Pharmacist Post D/C Phone Note Date of phone call: Sep 07, 2017. Medications Dose Route/Sig Max Daily Dose Days Date Category Aspirin EC Low Dose (Aspirin) 81 Mg Ectab 81 Mg PO QAM 30 09/05/17 Rx Lipitor (Atorvastatin Calcium) 40 Mg Tab 40 Mg PO QAM 30 09/05/17 Rx Cholest Off (Plant Sterols And Stanols) 450 Mg Tab 2 Tab PO DAILY 09/04/17 Reported Garlic 10 Mg Cap 1 Cap PO BID 09/04/17 Reported [place]-3 ([place]-3 Fatty Acids) 1 Cap Cap 500 Mg PO DAILY 09/04/17 Reported Meclizine HCl 12.5 Mg Tab 1 Tab PO QAM 30 09/04/17 Reported Meclizine Hcl 25 Mg Tab 1 Tab PO QPM 10 09/04/17 Reported Vasotec (Enalapril Maleate) 20 Mg Tab 20 Mg PO BID 03/09/15 Reported Multivitamin (Multiple Vitamin) 1 Tab Tab 1 Tab PO DAILY 03/09/15 Reported Nasonex (Mometasone Furoate (Nasal)) 50 Mcg/ Spr 2 [place] ROWAN DAILY 03/09/15 Reported Potassium Chloride Er (Potassium Chloride) 10 Meq Cap 10 Meq PO BID 03/09/15 Reported Hydrochlorothiazide 25 Mg Tab 25 Mg PO DAILY 03/09/15 Reported Caltrate 600 Plus * (Calcium/Vitamin D) Tab 1 Tab PO DAILY 04/22/06 Reported Individual with whom pharmacist spoke to: [Patient] The following questions were reviewed during the phone call with responses listed below each: Can you tell me the medications that you are currently taking as well as when and how you take each medication? - Patient had her list of medications in front of her and was able to tell me how she takes each of them. Currently, the enalpril and hydrochlorothiazide are on hold due to blood pressure concerns. She has been taking her blood pressure at home frequently and goes tomorrow to see her provider to determine if these agents are to be restarted. When have you missed any doses of your medications? - she just started taking her lipitor today, told me she was not able to make it to the pharmacy yesterday What side effects are you having from your medications? - not complaining of any side effects What questions do you have about your medications? - no questions during interview, seems pretty knowledgeable about medications What problems are you having obtaining your medications? - n/a - all of them are affordable When is your next appointment with your primary care doctor? - will see PCP tomorrow - talked about bringing updated medication list with her Additional comments: - Patient seems to be doing well since being discharged. States she is walking with a cane and will be undergoing physical therapy starting thursday. Seems very knowledgeable about medications and knew exactly what she is taking. Interview went very well, no additional questions from patient. As per the Pharmacist Discharge Counseling for Stroke Patients Protocol, this phone call has been completed within 72 hours of discharge. Thank you for allowing us to be involved in the care of this patient.
--- NOTE | 2017-09-15 11:12 | EDITING REQUIRED CODING QUERY ---
CODING QUERY To promote full compliance with coding requirements relating to patient care, provider participation is requested in all cases of outreach manager uncertainty. Please assist us with the question(s) below: Coding Question: The following was documented in the chart: "RIGHT-SIDED WEAKNESS, R/O CVA, Possible related to TIA". Please clarify below to the best of your knowledge. Thank you so much for your help! () TIA, present on admission () Stroke, present on admission () TIA/Stroke, ruled-out (x) Other, explain Acute/Subacute left pontine infarct Thank you! Jennifer Mercer Principal Diagnosis: "_that condition established after study, to be chiefly responsible for occasioning the admission of the patient to the hospital for care." Co-Existing Principal Diagnosis: "_when two or more diagnoses equally meet the criteria for principal diagnosis as determined by the circumstances of admission, diagnostic work up, and/or therapy provided, and the Alphabetic Index, Tabular List, or another coding guideline does not provide sequencing direction, any one of the diagnoses may be sequenced first." "When the physician has documented what appears to be a current diagnosis in the body of the record, but has not included the diagnosis in the final diagnostic statement, the physician should be asked whether the diagnosis should be added." (Source Coding Clinic 2 QTR90. p3-4)
== END 2017-09-05 17:35 | disposition home or self-care (01) | DRG 65 ==
LOC: C.EDB 09:28 → C.2T 11:45 → ENRESERV 12:09
PROVIDERS: ADMIT Hospitalist; ATTEND Hospitalist
DX: I63.8 Other cerebral infarction (principal); G81.91 Hemiplegia, unspecified affecting right dominant side; E78.5 Hyperlipidemia, unspecified; I10 Essential (primary) hypertension; H81.01 Meniere's disease, right ear; Z79.899 Other long term (current) drug therapy; Z86.73 Personal history of transient ischemic attack (TIA), and cerebral infarction without residual deficits; Z82.3 Family history of stroke; Z87.891 Personal history of nicotine dependence; Z88.1 Allergy status to other antibiotic agents; Z88.2 Allergy status to sulfonamides; Z88.8 Allergy status to other drugs, medicaments and biological substances

== ENCOUNTER 2017-09-09 09:15 | Emergency (ER) | payer OTHER ==
[~2017-09-09] VITALS: Ht 177.8 cm; Wt 82.4 kg
[~2017-09-09 09:15] MED LIST changes: -ASCO500T3 PO; +ASPI-320 PO; +GARL1CAP6 PO; +LPT40 PO; +MECL1TAB40 PO; +MECL1TAB42 PO; -NEOM1SOL20 OT; +OMEG1400 PO; +PLANTAB3 PO; -TRIA0.1C20 TOP
[2017-09-09 09:22] VITALS: TEMP 37.3; Ht 177.8 cm; Wt 82.4 kg
[2017-09-09 09:28] VITALS: O2SAT 98
[2017-09-09] MEDS ORDERED: LORA-741 PO (09:35)
[2017-09-09] MEDS ORDERED: CALC-354 PO (09:35)
[2017-09-09] MEDS ORDERED: POTA-74 PO (09:35)
[2017-09-09] MEDS ORDERED: ASCA500 PO (09:35)
[2017-09-09] MEDS ORDERED: MOME6000 NAE (09:35)
[2017-09-09] MEDS ORDERED: SODIUM CHLORIDE 0.9% 1000ML 2,000 ML IV STA (09:50)
[2017-09-09] MEDS ORDERED: ALBUT/IPRATROP 3MG/0.5MG NEB 3 ML VIAL INH STA (09:50)
[2017-09-09] MEDS ORDERED: KETOROLAC TROMETHAMINE 30 MG/ML VIAL IV STA (09:50)
[2017-09-09] MEDS ORDERED: SODIUM CHLORIDE 0.65% NA SOLN 45 ML (OCEAN) ONE (10:00)
[2017-09-09 10:04] LABS: BASO % 0.4 %; BASO ABS # 0.02 K/uL (0-0.2); EOS % 0.4 %; EOS ABS # 0.02 K/uL (0-0.5); HEMATOCRIT 41.8 % (37-47); HEMOGLOBIN 14.1 g/dL (12.0-16.0); LYMPH % 32.2 %; LYMPH ABS # 1.48 K/uL (1.2-3.4); MEAN CELL VOLUME 87.4 fL (80-100); MEAN CORPUSCULAR HEMOGLOBIN 29.5 pg (25-34); MEAN CORPUSCULAR HGB CONC 33.7 g/dl (32-36); MEAN PLATELET VOLUME 11.2 fL (7.4-10.4); MONO % 7.6 %; MONO ABS # 0.35 K/uL (0.11-0.59); NEUT % 59.4 %; NEUT ABS # 2.72 K/uL (1.4-6.5); PLATELET COUNT 183 K/uL (130-400); RED CELL DISTRIBUTION WIDTH CV 12.9 % (11.5-14.5); RED CELL DISTRIBUTION WIDTH SD 41.6 fL (36.4-46.3); WHITE BLOOD COUNT 4.59 K/uL (4.8-10.8)
[2017-09-09 10:12] LABS: ALBUMIN 3.4 gm/dl (3.4-5.0); CALCIUM 8.8 mg/dl (8.5-10.1); CREATININE 0.88 mg/dl (0.60-1.20); POTASSIUM 3.6 mmol/L (3.5-5.1)
[2017-09-09 10:14] LABS: TOTAL PROTEIN 7.4 gm/dl (6.4-8.2)
--- NOTE | 2017-09-09 10:31 | DIAGNOSTIC IMAGING REPORT ---
CHEST ONE VIEW PORTABLE HISTORY: 67 years-old Female CHEST PAIN acute atypical chest pain COMPARISON: Chest radiograph 09/04/2017 TECHNIQUE: Portable AP view of the chest FINDINGS: Cardiac silhouette is within normal limits. Atherosclerosis of the aorta. Sigmoidal scoliosis of the spine with degenerative changes. No pneumothorax, pleural effusion, focal airspace consolidation or overt pulmonary edema. IMPRESSION: No acute process. The above report was generated using voice recognition software. It may contain grammatical, syntax or spelling errors. Electronically signed by: Giovanni Hahn M.D. 09/09/2017 10:30 AM Dictated Date/Time: 09/09/2017 10:29 AM
[2017-09-09 11:20] LABS: INFLUENZA A PCR Neg for Influ A (NEG); INFLUENZA B PCR Neg for Influ B (NEG)
[2017-09-09] MEDS ORDERED: ALBUTEROL HFA 8 GM INHALER INH STA (11:33)
--- NOTE | 2017-09-09 11:48 | EMERGENCY ROOM VISIT NOTE ---
History Report prepared by Charles: Gene Maria Under the Supervision of: Dr. Jon Morin M.D. First contact with patient: 09:47 Chief Complaint: ILLNESS Stated Complaint: ILLNESS History of Present Illness The patient is a 67 year old female who presents to the Emergency Room with complaints of a persistent cough and upper respiratory congestion that began on Thursday, 5 days ago. The patient states that her symptoms began as she was leaving the hospital following an evaluation for a TIA. The patient came to the ED initially for focal weakness in her right arm and leg. imaging of the brain did not show an acute stroke. She states that her cough and upper respiratory congestion has worsened since Thursday, and her cough is now producing a mucous. She has also felt increasingly weak since Thursday. Her at bedside notes that he had to help lower the patient to the floor this morning as she was not able to hold her weight on her legs any longer. He was not able to get the patient off of the ground, so he phoned for EMS. The patient notes that this weakness has improved at this time when compared to how she felt earlier this morning. She has had a fever as high as 100.8 degrees last night. She denies any other shortness of breath, cough, chest pain, diarrhea, or vomiting. Source of History: patient Onset: 5 days ago Position: chest Quality: other (Cough) Timing: other (Persistent) Associated Symptoms: + fevers, + weakness, No chest pain, No SOB, No nausea , No vomiting, No diarrhea Review of Systems See HPI for pertinent positives and negatives. A total of ten systems were reviewed and were otherwise negative. Past Medical & Surgical Medical Problems: (1) Dyslipidemia (2) Hypertension (3) ICH (intracerebral hemorrhage) (4) Mnire's disease Surgical Problems: (1) H/O dilation and curettage (2) H/O tubal ligation (3) Hx of appendectomy (4) Hx of tonsillectomy Family History CVA BROTHER FH: colon cancer FATHER FH: pancreatic cancer MOTHER Social History Smoking Status: Never Smoker Alcohol Use: none Marital Status: Housing Status: lives with family Occupation Status: employed Current/Historical Medications Scheduled Ascorbic Acid (Vitamin C), 1,000 MG PO DAILY Aspirin (Aspirin EC Low Dose), 81 MG PO QAM Atorvastatin (Lipitor), 40 MG PO QAM Calcium Carbonate-Cholecalcife (Caltrate 600+D), 1 TAB PO DAILY Enalapril Maleate (Vasotec), 20 MG PO BID Garlic (Garlic), 1 CAP PO BID Hydrochlorothiazide (Hydrochlorothiazide), 25 MG PO DAILY Lorazepam (Ativan), 0.5 MG PO DIRECTED Mometasone Furoate (Nasal) (Mometasone Furoate), 2 SPRAY ROWAN DAILY Multiple Vitamin (Multivitamin), 1 TAB PO DAILY [place]-3 Fatty Acids ([place]-3), 500 MG PO DAILY Plant Sterols And Stanols (Cholest Off), 2 TAB PO DAILY Potassium Chloride (Potassium Chloride Er), 10 MEQ PO BIDM Scheduled PRN Meclizine Hcl (Meclizine Hcl), 1 TAB PO TID PRN for Dizziness or Vertigo Allergies Coded Allergies: Amoxicillin (Verified Adverse Reaction, Intermediate, nausea, 03/09/15) Clavulanic Acid (Verified Adverse Reaction, Intermediate, nausea, 03/09/15 ) Prednisone (Verified Adverse Reaction, Intermediate, nausea, 03/09/15) Sulfa Antibiotics (Verified Adverse Reaction, Intermediate, nausea, ) Doxycycline (Unverified Adverse Reaction, Unknown, nausea, 03/09/15) Physical Exam Vital Signs Date Time Temp Pulse Resp B/P (MAP) Pulse Ox O2 Delivery O2 Flow Rate FiO2 09/09/17 12:03 91 18 135/79 97 09/09/17 10:11 94 133/75 94 96 139/85 107 100/76 09/09/17 09:28 98 Room Air 09/09/17 09:25 98 09/09/17 09:22 37.3 93 18 136/78 98 Room Air Physical Exam GENERAL: Awake, alert, fatigued-appearing, in no distress HENT: Normocephalic, atraumatic. Dry cracked mucous membranes. Boggy nasal turbinates bilaterally. EYES: Normal conjunctiva. Sclera non-icteric. NECK: Supple. No nuchal rigidity. FROM. No JVD. RESPIRATORY: There is scant rhonchi at the bases bilaterally, otherwise clear. CARDIAC: Regular rate, normal rhythm. Extremities warm and well perfused. Pulses equal. ABDOMEN: Soft, non-distended. No tenderness to palpation. No rebound or guarding. No masses. RECTAL: Deferred. MUSCULOSKELETAL: Chest examination reveals no tenderness. The back is symmetrical on inspection without obvious abnormality. There is no CVA tenderness to palpation. No joint edema. LOWER EXTREMITIES: Calves are equal size bilaterally and non-tender. No edema. No discoloration. NEURO: Normal sensorium. No sensory or motor deficits noted. 5/5 strength and SILT x 4 ext. Normal cerebellar function with [id number], alternating palms , [id number]. SKIN: No rash or jaundice noted. Medical Decision & Procedures ER Provider Diagnostic Interpretation: Radiology results as stated below per my review and radiologist interpretation: CHEST ONE VIEW PORTABLE HISTORY: 67 years-old Female CHEST PAIN acute atypical chest pain COMPARISON: Chest radiograph 09/04/2017 TECHNIQUE: Portable AP view of the chest FINDINGS: Cardiac silhouette is within normal limits. Atherosclerosis of the aorta. Sigmoidal scoliosis of the spine with degenerative changes. No pneumothorax, pleural effusion, focal airspace consolidation or overt pulmonary edema. IMPRESSION: No acute process. The above report was generated using voice recognition software. It may contain grammatical, syntax or spelling errors. Electronically signed by: Giovanni Hahn M.D. 09/09/2017 10:30 AM Dictated Date/Time: 09/09/2017 10:29 AM Laboratory Results 09/09/17 09:30 Red Blood Count 4.78, Mean Corpuscular Volume 87.4, Mean Corpuscular Hemoglobin 29.5, Mean Corpuscular Hemoglobin Concent 33.7, Mean Platelet Volume 11.2, Neutrophils (%) (Auto) 59.4, Lymphocytes (%) (Auto) 32.2, Monocytes (%) (Auto) 7.6, Eosinophils (%) (Auto) 0.4, Basophils (%) (Auto) 0.4, Neutrophils # (Auto) 2.72, Lymphocytes # (Auto) 1.48, Monocytes # (Auto) 0.35, Eosinophils # (Auto) 0.02, Basophils # (Auto) 0.02 09/09/17 09:30 Test 09/09/17 09:30 09/09/17 10:10 White Blood Count 4.59 K/uL (4.8-10.8) Red Blood Count 4.78 M/uL (4.2-5.4) Hemoglobin 14.1 g/dL (12.0-16.0) Hematocrit 41.8 % (37-47) Mean Corpuscular Volume 87.4 fL (80-100) Mean Corpuscular Hemoglobin 29.5 pg (25-34) Mean Corpuscular Hemoglobin Concent 33.7 g/dl (32-36) Platelet Count 183 K/uL (130-400) Mean Platelet Volume 11.2 fL (7.4-10.4) Neutrophils (%) (Auto) 59.4 % Lymphocytes (%) (Auto) 32.2 % Monocytes (%) (Auto) 7.6 % Eosinophils (%) (Auto) 0.4 % Basophils (%) (Auto) 0.4 % Neutrophils # (Auto) 2.72 K/uL (1.4-6.5) Lymphocytes # (Auto) 1.48 K/uL (1.2-3.4) Monocytes # (Auto) 0.35 K/uL (0.11-0.59) Eosinophils # (Auto) 0.02 K/uL (0-0.5) Basophils # (Auto) 0.02 K/uL (0-0.2) RDW Standard Deviation 41.6 fL (36.4-46.3) RDW Coefficient of Variation 12.9 % (11.5-14.5) Immature Granulocyte % (Auto) 0.0 % Immature Granulocyte # (Auto) 0.00 K/uL (0.00-0.02) Anion Gap 2.0 mmol/L (3-11) Est Creatinine Clear Calc Drug Dose 72.5 ml/min Estimated GFR () 78.8 Estimated GFR (Non- 68.0 BUN/Creatinine Ratio 13.1 (10-20) Calcium Level 8.8 mg/dl (8.5-10.1) Total Bilirubin 0.4 mg/dl (0.2-1) Direct Bilirubin 0.1 mg/dl (0-0.2) Aspartate Amino Transf (AST/SGOT) 19 U/L (15-37) Alanine Aminotransferase (ALT/SGPT) 20 U/L (12-78) Alkaline Phosphatase 79 U/L (45-117) Total Protein 7.4 gm/dl (6.4-8.2) Albumin 3.4 gm/dl (3.4-5.0) Lipase 183 U/L (73-393) Influenza Type A (RT-PCR) Neg for Influ A (NEG) Influenza Type B (RT-PCR) Neg for Influ B (NEG) Laboratory results reviewed by me Medications Administered Medications (Trade) Dose Ordered Sig/Darlene Route Start Time Stop Time Status Last Admin Dose Admin Sodium Chloride 2,000 ml @ 999 mls/hr Q2H1M STAT IV 09/09/17 09:50 09/09/17 11:50 DC 09/09/17 10:16 999 MLS/HR Ketorolac Tromethamine (Toradol Inj) 15 mg NOW STAT IV 09/09/17 09:50 09/09/17 09:56 DC 09/09/17 10:16 15 MG Sodium Chloride ([place] Nasal [place]) 2 sprays NOW ONCE NA 09/09/17 10:00 09/09/17 10:01 DC 09/09/17 10:15 2 SPRAYS Albuterol/ Ipratropium (Duoneb) 3 ml NOW STAT INH 09/09/17 09:50 09/09/17 09:56 DC 09/09/17 10:16 3 ML Albuterol (Ventolin Hfa Inhaler) 2 puffs NOW STAT INH 09/09/17 11:33 09/09/17 11:35 DC 09/09/17 11:46 2 PUFFS ECG Per My Interpretation Indication: weakness Rate (beats per minute): 93 Rhythm: normal sinus Findings: other (Normal axis, no CHAVEZ/STD) ED Course 0948: The patient was evaluated in room B8. A complete history and physical exam was performed. 0950: Ordered Duoneb 3 mL INH, Toradol 15 mg IV, Sodium Chloride 2000 mL @ 999 mL/hr IV. 1000: Ordered Sodium Chloride 2 sprays 1129: I reevaluated the patient. She is feeling better. She will finish her IV fluids and be discharged home. 1133: Ordered Albuterol 2 puffs INH. 1153: The patient walked without difficulty at this time. The patient will be discharged home. Medical Decision I reviewed the patient's past medical history, medications, and the nursing notes as described above. Differential diagnosis: Etiologies such as viral syndrome, otitis, pharyngitis, pneumonia, influenza, meningitis, urinary tract infection, sepsis, bacteremia, as well as others were entertained. The patient is a 67-year-old woman who presents emergency department with cough , congestion, generalized weakness involving since her recent discharge last Thursday after being admitted for a TIA workup per [facility]. On arrival the patient is fatigued appearing but no acute distress, afebrile stable vital signs. The patient appears clinically dry. She had positive orthostatic vital signs. Labs unremarkable. Chest x-ray negative. Flu negative. Symptoms most likely related to a viral upper respiratory infection. The patient was feeling improved after IV fluid hydration, saline nasal spray, DuoNeb. Findings and plan for follow-up reviewed with patient. Patient agreeable and d/c'd per discharge instructions. Medication Reconcilliation Current Medication List: was personally reviewed by me Blood Pressure Screening Patient's blood pressure: Normal blood pressure Impression Primary Impression: Upper respiratory infection Additional Impressions: Orthostatic dizziness Dehydration Scribe Attestation The scribe's documentation has been prepared under my direction and personally reviewed by me in its entirety. I confirm that the note above accurately reflects all work, treatment, procedures, and medical decision making performed by me. Departure Information Dispostion Home / Self-Care Referrals Faheem Nicole, D.O. (PCP) Patient Instructions ED Upper Resp Infec No Abx Tx, My [facility] Additional Instructions Please follow up with your primary care physician in the next 1-3 days for re- evaluation. Your symptoms are likely due to an upper respiratory infection and associated dehydration. Otherwise, your exam, EKG, chest xray, and lab results did not show signs of an emergent condition at this time. Acetaminophen and Ibuprofen for pain and fevers as needed. Saline nasal spray and mucinex to help thin a clear mucus as needed. Use your albuterol inhaler 2 puffs every 4 hours for the next 48 hours and then as needed thereafter. Drink plenty of fluids to ensure hydration. Return to the emergency department for worsening symptoms as described in the accompanying instructions. Problem Qualifiers
[2017-09-09 12:03] VITALS: BP 135/79; PULSE 91; O2SAT 97
== END 2017-09-09 12:03 | disposition home or self-care (01) ==
LOC: EDBD 09:15 → C.EDB 09:16
DX: J06.9 Acute upper respiratory infection, unspecified (principal); R42 Dizziness and giddiness; E86.0 Dehydration; E78.5 Hyperlipidemia, unspecified; I10 Essential (primary) hypertension; H81.09 Meniere's disease, unspecified ear; Z88.1 Allergy status to other antibiotic agents; Z88.8 Allergy status to other drugs, medicaments and biological substances; Z88.2 Allergy status to sulfonamides